=== PATIENT | female | born 1975 | race African-American/Black ===

== ENCOUNTER 2019-07-07 08:52 | Outpatient (CLI) | payer OTHER, SELFPAY ==
--- NOTE | ~2019-07-07 | US_ITS ---
EXAMINATION: US pelvic complete w TV DATE: 07/07/2019 09:43 INDICATION: Irregular menstruation Comparison:Ultrasound dated 09/14/2017 TECHNIQUE: Multiple transabdominal and endovaginal sonographic images of the pelvis performed. FINDINGS: The uterus measures 6.9 x 5.2 x 5.1 cm. Uterus is retroverted. There is a uterine fibroid a t the fundus measuring 3.1 x 3 x 2.8 cm. The endometrial complex measures 9 mm. The right ovary measures 0.4 x 1.6 x 1.4 cm and the left ovary measures 2.5 x 1.5 x 1.6 cm. There ar e small follicles in each ovary. There is no free fluid in the pelvis. There are no abnormal masses seen on either side. IMPRESSION: 1. 3.1 cm uterine fibroid. Reviewed, dictated and finalized at location A. L ASSEMBLY INSPECTOR IMPRESSION: 1. 3.1 cm uterine fibroid.
--- NOTE | ~2019-07-07 | US_ITS ---
US thyroid INDICATION: Thyroid nodule TECHNIQUE: Real-time sonographic images of the thyroid gland were obtained. COMPARISON: Ultrasound dated 10/31/2018 FINDINGS: The right thyroid lobe measures 4.2 x 1.7 x 1.9 cm. The left thyroid lobe measures 5.2 x 1 .6 x 1.9 cm. Nodule identified on prior examination is not appreciated on the current study. There is normal echotexture and echogenicity throughout the thyroid gland. No discrete nodules identified. N ormal vascular flow is present. IMPRESSION: 1. Normal thyroid without discrete nodule or abnormal vascularity. Reviewed, dictated and finalized at location A. GEMENT PSYCHOLOGIST
== END 2019-07-07 08:53 | disposition home or self-care (01) ==
PROVIDERS: PCP Internal Medicine; Visit Provider Obstetrics & Gynecology
DX: N92.6 Irregular menstruation, unspecified (principal); D25.9 Leiomyoma of uterus, unspecified; E04.1 Nontoxic single thyroid nodule
CPT/HCPCS: 76536; 76830; 76856

== ENCOUNTER 2019-07-11 17:40 | Emergency (ER) | payer OTHER, SELFPAY ==
[2019-07-11 17:48] VITALS: BP 131/68; PULSE 53; RESP 18; TEMP 36.3; O2SAT 100
== END 2019-07-11 18:37 | disposition left against medical advice (07) ==
LOC: EXPCOLL 17:45
PROVIDERS: Emergency Provider Nurse Practitioner; PCP Internal Medicine
DX: M79.675 Pain in left toe(s) (principal)
CPT/HCPCS: 99199

== ENCOUNTER → 2020-04-08 09:31 | Outpatient (CLI) | payer OTHER, SELFPAY ==
--- NOTE | ~2020-04-08 | CT_ITS ---
EXAMINATION: CT brain wo con EXAM DATE: 04/08/2020 10:07 INDICATION: Syncope and collapse. Dizziness. TECHNIQUE: Spiral CT of the head was performed without contrast. Axial, coronal and sagittal images were reviewed. The dose-length product (DLP) for this examination was 599.57 mGy-cm. The exposure w as tailored according to patient size, and iterative reconstruction (ASIR) was used as additional dos e reduction technique. There is no prior study for comparison. FINDINGS: There is no acute intraparenchymal hemorrhage. No evidence of intraparenchymal brain mass lesion. No evidence of acute infarction. There is no mass effect or midline shift. The ventricles are normal in size. There are no extra-axial collections. There are no acute calvarial fractures. T he orbits are unremarkable. Soft tissue is unremarkable. The visualized sinuses and mastoid air norris ls are well aerated. IMPRESSION: 1. Unremarkable head CT examination. Reviewed, dictated and finalized at location B. CTOR APPAREL
== END ==
PROVIDERS: PCP Internal Medicine; Visit Provider Internal Medicine
DX: R55 Syncope and collapse (principal)
CPT/HCPCS: 70450

== ENCOUNTER 2022-05-08 13:49 | Emergency (ER) | payer OTHER, SELFPAY ==
--- NOTE | ~2022-05-08 | XR_ITS ---
EXAMINATION: XR chest 2V DATE: 05/08/2022 14:19 INDICATION: Chest pain TECHNIQUE: PA and lateral views of the chest were obtained. COMPARISON: Chest radiograph dated 05/27/2019 FINDINGS: The lungs remain clear with no focal airspace opacities, pulmonary edema, pleural effusion or pneumot horax. The cardiomediastinal silhouette is normal. Upper thoracic levocurvature. IMPRESSION: 1. No acute cardiopulmonary disease. Reviewed, dictated and finalized at location A. ER ENGINEER HELPER
[2022-05-08 14:03] VITALS: BP 134/84; PULSE 64; RESP 18; TEMP 36.2; O2SAT 100
--- NOTE | 2022-05-08 14:06 | ECG_ITS ---
Measurements Intervals [place] Rate: 58 P: 56 VT: 141 QRS: 35 QRSD: 82 T: 51 QT: 422 QTc: 417 Interpretive Statements SINUS BRADYCARDIA POSSIBLE LEFT ATRIAL ENLARGEMENT BORDERLINE ECG NO PREVIOUS ECG AVAILABLE FOR COMPARISON Electronically Signed On 05-08-2022 15:57:44 GEOSPATIAL SYSTEMS INTEGRATOR by Kendell Sanchez M.D.
[2022-05-08 14:16] LABS: Basophils Absolute Auto 0.1 K/mm3 (0.0-0.1); Eosinophils Absolute Auto 0.2 K/mm3 (0-0.3); Hematocrit 42.2 % (37.0-47.0); Hemoglobin 13.9 g/dL (12.0-15.0); Immature Granulocyte Absolute 0.01 K/mm3 (0.00-0.031); Immature Granulocyte Percent A 0.2 % (0-0.5); Lymphocytes Absolute Auto 3.13 K/mm3 (0.9-3.2); Lymphocytes Percent Auto 51.9 % (18.3-44.2); Mean Corpuscular HGB Conc 32.9 g/dl (32-36); Mean Corpuscular Hemoglobin 31.3 pg (26-34); Mean Platelet Volume 9.8 fl (7.4-10.4); Monocytes Absolute Auto 0.5 K/mm3 (0.1-0.6); Neutrophils Absolute Auto 2.1 K/mm3 (1.3-6.7); Neutrophils Percent Auto 34.9 % (45.5-73.1); Platelet Count Result 269 k/mm3 (150-375); Red Blood Count 4.44 M/mm3 (4.2-5.4); Red Cell Distribution Width 13.6 % (11.5-14.5)
[2022-05-08 14:42] LABS: Alanine Aminotransferase 17 U/L (6-35); Albumin Level 4.5 g/dL (3.5-5.1); Alkaline Phosphatase 121 U/L (38-126); Anion Gap 4 mmol/L (8-16); Aspartate Amino Transferase 36 U/L (14-36); Bilirubin,Total 0.5 mg/dL (0.2-1.3); Blood Urea Nitrogen 12 mg/dL (7-17); Carbon Dioxide 30 mmol/L (22-30); Chloride 103 mmol/L (98-107); Estimated CRCL calculation 80 ml/min; Estimated Glomerular Filt Rate > 60; Glucose 98 mg/dL (65-110); Lipase 118 U/L (23-300); Potassium 4.1 mmol/L (3.4-5.0); Sodium 137 mmol/L (137-145)
[2022-05-08 14:42] LABS: Add Urine Microscopic? YES; Appearance Urine Clear (Clear); Bilirubin Urine 1+ (Negative); Blood Urine 1+ (Negative); Color Urine Yellow (Yellow); Glucose Urine UA Negative (Negative); Ketones Urine Negative (Negative); Leukocyte Esterase Ur Negative LEU/UL (Negative); Nitrate Urine Negative (Negative); Protein Urine Negative (Negative); Specific Grav Ur >= 1.030 (1.001-1.035); Urobilinogen Urine 0.2 mg/dL (<2.0); pH Urine 5.5 (5.0-9.0)
[2022-05-08 14:50] LABS: Bacteria Urine Trace /hpf; Mucus Urine Few /lpf; Squamous Epithelial Cell Urine Few /hpf (Few); WBC Urine 0-3 /hpf
[2022-05-08 14:53] LABS: Troponin I < 0.012 ng/mL (0.000-0.034)
--- NOTE | 2022-05-08 15:46 | PC.NURSE ---
Patient's name called multiple times to be taken to ED room, no answer.
--- NOTE | 2022-05-08 16:52 | PC.NURSE ---
Patient's name called again to be taken to room, no answer.
== END 2022-05-08 16:52 | disposition left against medical advice (07) ==
PROVIDERS: Emergency Provider Emergency Medicine; PCP Internal Medicine
DX: R07.9 Chest pain, unspecified (principal)
CPT/HCPCS: 36415; 71046; 80053; 81001; 81025; 83690; 84484; 85025; 93005; 99199

== ENCOUNTER 2022-07-02 12:15 | Emergency (ER) | payer OTHER, SELFPAY ==
[2022-07-02 12:29] VITALS: BP 136/74; PULSE 66; RESP 16; TEMP 36.4; O2SAT 97
== END 2022-07-02 13:15 | disposition left against medical advice (07) ==
PROVIDERS: PCP Internal Medicine
DX: Z53.21 Procedure and treatment not carried out due to patient leaving prior to being seen by health care provider (principal)
CPT/HCPCS: 99199

== ENCOUNTER 2024-04-19 18:25 | Emergency (ER) | payer OTHER, SELFPAY ==
[2024-04-19 18:36] VITALS: BP 116/66; PULSE 69; RESP 20; TEMP 37.6; O2SAT 100
== END 2024-04-19 19:05 | disposition left against medical advice (07) ==
PROVIDERS: Emergency Provider Internal Medicine Hematology & Oncology; PCP Internal Medicine
DX: Z53.21 Procedure and treatment not carried out due to patient leaving prior to being seen by health care provider (principal)
CPT/HCPCS: 99199

== ENCOUNTER 2024-04-21 10:13 | Emergency (ER) | payer OTHER, SELFPAY ==
--- NOTE | ~2024-04-21 | XR_ITS ---
EXAMINATION: XR chest 2V DATE: 04/21/2024 10:22 INDICATION: Chest pain. TECHNIQUE: Frontal and lateral views of the chest were obtained. COMPARISON: Chest 2 views 05/08/2022 FINDINGS: There is no pneumonia, pleural effusion, or pneumothorax. The heart size is normal. IMPRESSION: 1. No acute cardiopulmonary disease. Reviewed, dictated and finalized at location A. N PROCESSOR
--- NOTE | 2024-04-21 10:14 | ECG_ITS ---
Test Date: 2024-04-21 10:33:18 Measurements Intervals [place] Rate: 59 P: 69 AL: 124 QRS: 63 QRSD: 92 T: 59 QT: 393 QTc: 392 Interpretive Statements SINUS BRADYCARDIA MINIMAL VOLTAGE CRITERIA FOR LVH, CONSIDER NORMAL VARIANT [MEETS CRITERIA IN ONE OF: R(aVL), S(V1), R(V5), R(V5/V6)+S(V1)] No previous ECG available for comparison Electronically Signed On 04-21-2024 15:04:23 GROUND HOST/HOSTESS by Yang Biggs M.D.
[2024-04-21 10:23] VITALS: BP 113/71; PULSE 61; RESP 18; TEMP 36.2; O2SAT 98
[2024-04-21 10:46] LABS: Basophils Absolute Auto 0.1 K/mm3 (0.0-0.1); Basophils Percent Auto 1.1 % (0.2-1.2); Eosinophils Percent Auto 0.2 % (0-4.4); Hematocrit 42.8 % (37.0-47.0); Immature Granulocyte Absolute 0.01 K/mm3 (0.00-0.031); Immature Granulocyte Percent A 0.2 % (0-0.5); Lymphocytes Absolute Auto 2.01 K/mm3 (0.9-3.2); Lymphocytes Percent Auto 44.9 % (18.3-44.2); Mean Corpuscular Hemoglobin 32.3 pg (26-34); Mean Corpuscular Volume 92.2 fl (80-100); Mean Platelet Volume 10.5 fl (7.4-10.4); Monocytes Absolute Auto 0.6 K/mm3 (0.1-0.6); Monocytes Percent Auto 12.9 % (2.6-8.5); Neutrophils Absolute Auto 1.8 K/mm3 (1.3-6.7); Neutrophils Percent Auto 40.7 % (45.5-73.1); Platelet Count Result 165 k/mm3 (150-375); Red Blood Count 4.64 M/mm3 (4.2-5.4); Red Cell Distribution Width 13.9 % (11.5-14.5); White Blood Count 4.5 K/mm3 (4.5-10.0)
[2024-04-21 10:58] LABS: Alanine Aminotransferase 35 U/L (6-35); Albumin Level 4.4 g/dL (3.5-5.1); Alkaline Phosphatase 104 U/L (38-126); Anion Gap 7 mmol/L (4-12); Aspartate Amino Transferase 50 U/L (14-36); Bilirubin,Total 0.5 mg/dL (0.2-1.3); Blood Urea Nitrogen 13 mg/dL (7-17); Calcium 9.1 mg/dL (8.4-10.2); Carbon Dioxide 28 mmol/L (22-30); Chloride 103 mmol/L (98-107); Estimated CRCL calculation 67 ml/min; Estimated Glomerular Filt Rate > 60; Glucose 128 mg/dL (65-110); Lipase 127 U/L (23-300); Prothrombin Time 13.4 Seconds (11.1-14.7); Sodium 138 mmol/L (137-145)
[2024-04-21 11:09] LABS: Troponin I < 0.012 ng/mL (0.000-0.034)
[2024-04-21 12:02] VITALS: PULSE 447; PULSE 48; RESP 17; TEMP 36.7; O2SAT 97; O2SAT 98
--- NOTE | 2024-04-21 13:10 | ED.CHESTPAIN ---
HPI - Chest Pain General Chief Complaint: Chest Pain Stated Complaint: headache/CP/body aches Time Seen by Provider: 04/21/24 12:16 History of Present Illness HPI narrative: 49-year-old female with no pertinent past medical history presenting to the emergency depart with chief complaint of generalized malaise, decreased appetite, chest pain, coughing with mucus production, subjective fever and chills. She does have close contacts that are sick including a with pneumonia at home. Has been taking some Tylenol with minimal relief of her symptoms. Denies any shortness a breath, headache, vision change, dysuria, hematuria, back pain. She endorses pain with coughing and chest pressure / pain underneath her left breast cage. Denies any rashes. Denies any trauma recent injuries. Was otherwise in her normal state of health. Related Data Home Medications Medication Instructions Recorded Confirmed epinephrine 0.3 mg/0.3 mL 0.3 mg IM ONCE 04/22/19 07/02/22 injection, auto-injector (EpiPen 2-Luis Daniel) Allergies Allergy/AdvReac Type Severity Reaction Status Date / Time shrimp Allergy Severe swelling/hi Verified 07/02/22 12:25 ves/itching iodine Allergy Mild Unknown Verified 07/02/22 12:25 shellfish derived Allergy Unknown Itching Verified 07/02/22 12:25 Review of Systems Review of Systems: As reviewed above in HPI PMFSH Past Medical History Medical History Fibroid uterus Vaginal delivery x 2 Surgical History Surgical History History of tubal ligation Family History Family History Grandparent Family history of malignant neoplasm Family history of malignant neoplasm of breast Mother Family history of lung cancer Other Family history of heart disease in male family member before age 55 Hypertension Social History Social History Smoking status: Current some day smoker (smokes cigars 4 to 5 a day) Smoking end date: 05/15/13 Alcohol intake: current Exam Narrative: GENERAL: [Well-appearing, well-nourished, and in no acute distress.] HEAD: [Normocephalic, atraumatic.] EYES: [PERRLA and EOMI.] ENT: Nares clear, no rhinorrhea or epistaxis. Mucous membranes moist. NECK: Supple. CHEST: [Clear to auscultation. No respiratory distress.] HEART: [Regular rate and rhythm]. No murmur heard. [Normal peripheral pulses.] ABDOMEN: [Soft, nondistended], [nontender], [No rigidity or guarding] EXTREMITIES: Normal range of motion. [No edema.] SKIN: Warm, dry, no rash. NEURO: [No focal deficits]. Alert and oriented [x3.] PSYCH: [Normal mood and affect.] Course Vital Signs Vital signs: Vital Signs Temperature 36.2 C L 04/21/24 10:23 Pulse Rate 61 04/21/24 10:23 Respiratory Rate 18 04/21/24 10:23 Blood Pressure 113/71 04/21/24 10:23 Pulse Oximetry 98 04/21/24 10:23 Oxygen Delivery Room Air 04/21/24 10:23 Temperature 37.2 C 04/21/24 15:13 Pulse Rate 46 L 04/21/24 15:13 Respiratory Rate 17 04/21/24 15:13 Blood Pressure 126/64 04/21/24 15:13 Pulse Oximetry 98 04/21/24 15:13 Oxygen Delivery Room Air 04/21/24 12:02 MDM - Chest Pain MDM Narrative Medical decision making narrative: 49-year-old female with no pertinent past medical history who presents to the emergency room with chief complaint of myalgias, fatigue, decreased appetite, chest pain, pain with coughing and productive cough. She has close contacts including her sick with pneumonia at home. Denies any recent injuries or illnesses otherwise. Has been taking Tylenol without any relief of her symptoms. She has normal reassuring vital signs with any hypoxic, fever, tachycardia blood pressure concerns. Examination is reassuring with clear breath sounds bilaterally, no increased work of breathing, tachypnea, no tenderness to the palpation of the chest wall or back, no lesions or rashes. Overall she is well appearing and likely has a acute viral illness or acute viral syndrome secondary to a nonspecific virus but given her proximity to her with bacterial pneumonia could be secondary to this as well. Low suspicion cardiac pathology given her lack of risk factors and overall well appearance but a cardiac workup was ordered including a CBC, CMP, lipase, troponin, EKG, chest x-ray, urinalysis, COVID fluid RSV swabs. She is given Toradol for symptom control. Workup revealed no leukocytosis, anemia. Negative troponin. EKG without pneumonia, pneumothorax or acute infectious or cardiopulmonary concerns. Urinalysis without any active infection. COVID fluid influenza swab did come back for influenza a which I did inform the patient about. Given her timeline of symptoms going on for over 2 days and lack of any significant concerns on her laboratory assessment or workup today with overall well appearance without any comorbidities we did elect to not start Tamiflu after discussing this with the patient. Patient felt improved after Toradol and IV gave her expectant management precautions including [id number] therapies including Tylenol, ibuprofen and cold and flu medications at her local pharmacy. Patient's questions were answered she was stable for discharge at this time. Medical Records Data Attestation: I reviewed the patient's medical records. Lab Data Attestation: I reviewed the patient's lab results. 04/21/24 10:29 04/21/24 10:29 Labs: Lab Results 04/21/24 04/21/24 04/21/24 Range/Units 10:29 12:50 14:57 WBC 4.5 (4.5-10.0) K/mm3 RBC 4.64 (4.2-5.4) M/mm3 Hgb 15.0 (12.0-15.0) g/dL Hct 42.8 (37.0-47.0) % MCV 92.2 (80-100) fl MCH 32.3 (26-34) pg MCHC 35.0 (32-36) g/dl RDW 13.9 (11.5-14.5) % Plt Count 165 (150-375) k/mm3 MPV 10.5 H (7.4-10.4) fl Immature Gran % (Auto) 0.2 (0-0.5) % Neut % (Auto) 40.7 L (45.5-73.1) % Lymph % (Auto) 44.9 H (18.3-44.2) % [place] % (Auto) 12.9 H (2.6-8.5) % Eos % (Auto) 0.2 (0-4.4) % Baso % (Auto) 1.1 (0.2-1.2) % Lymph # (Auto) 2.01 (0.9-3.2) K/mm3 [place] # (Auto) 0.6 (0.1-0.6) K/mm3 Eos # (Auto) 0.0 (0-0.3) K/mm3 Baso # (Auto) 0.1 (0.0-0.1) K/mm3 Abs Immat Gran (auto) 0.01 (0.00-0.031) K/mm3 Absolute Neuts (auto) 1.8 (1.3-6.7) K/mm3 Absolute Nucleated RBC 0.000 (0.0-0.012) K/mm3 Nucleated RBC % 0.0 (0.0-0.2) % PT 13.4 (11.1-14.7) Seconds INR 1.0 APTT 34.0 (22.3-36.8) Seconds Sodium 138 (137-145) mmol/L Potassium 4.0 (3.4-5.0) mmol/L Chloride 103 (98-107) mmol/L Carbon Dioxide 28 (22-30) mmol/L Anion Gap 7 (4-12) mmol/L BUN 13 (7-17) mg/dL Creatinine 0.90 (0.7-1.0) mg/dL Estim Creat Clear Calc 67 ml/min Estimated GFR > 60 (59 - ) Glucose 128 H (65-110) mg/dL Calcium 9.1 (8.4-10.2) mg/dL Total Bilirubin 0.5 (0.2-1.3) mg/dL AST 50 H (14-36) U/L ALT 35 (6-35) U/L Alkaline Phosphatase 104 (38-126) U/L Troponin I < 0.012 (0.000-0.034) ng/mL Total Protein 8.0 (6.3-8.2) g/dL Albumin 4.4 (3.5-5.1) g/dL Lipase 127 (23-300) U/L Urine Color Dark yellow (Yellow) Urine Appearance Clear (Clear) Urine pH 5.0 (5.0-9.0) Ur Specific [place] 1.038 H (1.001-1.035) Urine Protein 2+ H (Negative) mg/dL Urine Glucose (UA) Negative (Negative) mg/dL Urine Ketones Trace H (Negative) mg/dL Ur Blood (Man) Negative (Negative) Urine Nitrate Negative (Negative) Urine Bilirubin Negative (Negative) Urine Urobilinogen 0.2 (<2.0) mg/dL Leukocyte Esterase Rfl Trace H (Negative) JAZZY/UL Urine RBC 0-2 (0-2) /hpf Urine WBC 0-5 (0-3) /hpf Ur Squamous Epith Cells Occasional (Few) /hpf Urine Bacteria Rare /hpf Urine Casts 3-5 Influenza A (RT-PCR) Positive A (Negative) Influenza B (RT-PCR) Negative (Negative) SARS-CoV-2 RNA (RT-PCR) Negative (Negative) 04/21/24 Range/Units 15:05 WBC (4.5-10.0) K/mm3 RBC (4.2-5.4) M/mm3 Hgb (12.0-15.0) g/dL Hct (37.0-47.0) % MCV (80-100) fl MCH (26-34) pg MCHC (32-36) g/dl RDW (11.5-14.5) % Plt Count (150-375) k/mm3 MPV (7.4-10.4) fl Immature Gran % (Auto) (0-0.5) % Neut % (Auto) (45.5-73.1) % Lymph % (Auto) (18.3-44.2) % [place] % (Auto) (2.6-8.5) % Eos % (Auto) (0-4.4) % Baso % (Auto) (0.2-1.2) % Lymph # (Auto) (0.9-3.2) K/mm3 [place] # (Auto) (0.1-0.6) K/mm3 Eos # (Auto) (0-0.3) K/mm3 Baso # (Auto) (0.0-0.1) K/mm3 Abs Immat Gran (auto) (0.00-0.031) K/mm3 Absolute Neuts (auto) (1.3-6.7) K/mm3 Absolute Nucleated RBC (0.0-0.012) K/mm3 Nucleated RBC % (0.0-0.2) % PT (11.1-14.7) Seconds INR APTT (22.3-36.8) Seconds Sodium (137-145) mmol/L Potassium (3.4-5.0) mmol/L Chloride (98-107) mmol/L Carbon Dioxide (22-30) mmol/L Anion Gap (4-12) mmol/L BUN (7-17) mg/dL Creatinine (0.7-1.0) mg/dL Estim Creat Clear Calc ml/min Estimated GFR (59 - ) Glucose (65-110) mg/dL Calcium (8.4-10.2) mg/dL Total Bilirubin (0.2-1.3) mg/dL AST (14-36) U/L ALT (6-35) U/L Alkaline Phosphatase (38-126) U/L Troponin I Pending (0.000-0.034) ng/mL Total Protein (6.3-8.2) g/dL Albumin (3.5-5.1) g/dL Lipase (23-300) U/L Urine Color (Yellow) Urine Appearance (Clear) Urine pH (5.0-9.0) Ur Specific [place] (1.001-1.035) Urine Protein (Negative) mg/dL Urine Glucose (UA) (Negative) mg/dL Urine Ketones (Negative) mg/dL Ur Blood (Man) (Negative) Urine Nitrate (Negative) Urine Bilirubin (Negative) Urine Urobilinogen (<2.0) mg/dL Leukocyte Esterase Rfl (Negative) JAZZY/UL Urine RBC (0-2) /hpf Urine WBC (0-3) /hpf Ur Squamous Epith Cells (Few) /hpf Urine Bacteria /hpf Urine Casts Influenza A (RT-PCR) (Negative) Influenza B (RT-PCR) (Negative) SARS-CoV-2 RNA (RT-PCR) (Negative) Imaging Data Attestation: I personally reviewed and interpreted this imaging study as follows: My impression: Impressions Chest X-Ray 04/21/24 10:31 IMPRESSION: 1. No acute cardiopulmonary disease. ECG Data EKG #1: Attestation: I personally reviewed and interpreted this ECG as follows: ECG completion date: 04/21/24 ECG completion time: 15:10 Prior ECG tracings: not available for review Interpretation: Sinus bradycardia, no S T segment elevations, depressions or inversions. No CO prolongation, QTC 395 and normal 5 QRS 88, CO interval 139. No previous EKG for comparison. overall sinus bradycardia without acute ischemic concerns or ectopy Discharge Plan Discharge Clinical Impression: Influenza A, Acute viral syndrome Patient Disposition: Home, Self-Care Condition: Stable Instructions: Antibiotic Form, Influenza (DC) Additional Instructions: take Tylenol, Motrin, [id number] cold and flu medications for your symptoms. Return at any time with any new or worsening concerns, difficulty breathing, chest pain or any other symptoms that you find worrisome. Follow-up with your regular doctor outpatient. Prescriptions: No Action epinephrine [EpiPen 2-Luis Daniel] 0.3 mg/0.3 mL auto-injector 0.3 mg IM ONCE Follow-up/Referrals: Pawan,MD Marcie [Primary Care Provider] - Time of Disposition: 15:29
[2024-04-21] MEDS: KETOROLAC 30 MG/ML VIAL (*BKC) IV PUSH (13:17)
[2024-04-21 14:00] VITALS: BP 110/64; PULSE 48; RESP 15; TEMP 36.4; O2SAT 100
[2024-04-21 14:20] LABS: Influenza A QL RT-PCR Positive (Negative); Influenza B QL RT-PCR Negative (Negative); SARS-CoV-2 RNA PCR Negative (Negative)
[2024-04-21 15:06] LABS: Add Urine Microscopic? YES; Appearance Urine Clear (Clear); Bacteria Urine Rare /hpf; Bilirubin Urine Negative (Negative); Blood Urine Negative (Negative); Color Urine Dark Yellow (Yellow); Glucose Urine UA Negative (Negative); Ketones Urine Trace mg/dL (Negative); Leukocyte Esterase Ur Trace LEU/UL (Negative); Nitrate Urine Negative (Negative); Protein Urine 2+ mg/dL (Negative); RBC Urine 0-2 /hpf (0-2); Specific Grav Ur 1.038 (1.001-1.035); Squamous Epithelial Cell Urine Occasional /hpf (Few); Urobilinogen Urine 0.2 mg/dL (<2.0); WBC Urine 0-5 /hpf (0-3)
--- NOTE | 2024-04-21 15:07 | ECG_ITS ---
Test Date: 2024-04-21 15:10:45 Measurements Intervals [place] Rate: 46 P: 10 [place]: 139 QRS: 48 QRSD: 88 T: 51 QT: 450 QTc: 395 Interpretive Statements SINUS BRADYCARDIA MINIMAL VOLTAGE CRITERIA FOR LVH, CONSIDER NORMAL VARIANT [MEETS CRITERIA IN ONE OF: R(aVL), S(V1), R(V5), R(V5/V6)+S(V1)] Compared to ECG 04/21/2024 10:33:18 No significant changes Electronically Signed On 04-22-2024 12:42:36 METAL STAMPER by Lasha Tipton M.D.
[2024-04-21 15:13] VITALS: BP 126/64; PULSE 46; RESP 17; TEMP 37.2; O2SAT 98
[2024-04-21 15:31] LABS: Troponin I < 0.012 ng/mL (0.000-0.034)
[2024-04-21 16:15] VITALS: BP 109/87; PULSE 100; RESP 20; TEMP 37.2; O2SAT 100
== END 2024-04-21 16:15 | disposition home or self-care (01) ==
PROVIDERS: Emergency Provider Student in an Organized Health Care Education/Training Program; PCP Internal Medicine
DX: J10.1 Influenza due to other identified influenza virus with other respiratory manifestations (principal); B34.9 Viral infection, unspecified; R00.1 Bradycardia, unspecified; Z20.822 Contact with and (suspected) exposure to COVID-19
CPT/HCPCS: 36415; 71046; 80053; 81001; 83690; 84484; 85025; 85610; 85730; 87636; 93005; 96374; 99284; J1885

== ENCOUNTER 2024-12-06 22:06 | Emergency (ER) | payer SELFPAY ==
--- OUTSIDE RECORDS SUMMARY | 2024-12-06 22:08 | XMS_ITS | Encounter Summary ---
Author Organization [facility] Healthcare Address [address] [place] [address] Care Team Providers Care Dray Truck Driver Name Role Phone Unavailable Primary Care Provider Unavailabl e Reason for Visit * Diagnostic Imaging (Routine) - Closed Specialty Diagnoses / Procedures Referred By Contac t Referred To Contact Procedures Breast Imaging Screening Outside Reference Referral, Self Referral ID Status Reason Start Date Expiration Date Visits Re quested Visits Authorized [id number] Closed 02/02/2022 03/04/2023 1 1 Encounter Details Date Type Department Care Team (Late st Contact Info) Description 09/14/2017 Hospital Encounter [facility] [address] [place] [id number] Social History Tobacco Use Types Packs/Day Years Used Date Smoking Tobacco: Every Day Cigarettes 0.2 1 Cigars Smokeless Tobacco: Never Comments:4 cigars daily Alcohol Use Standard Drinks/Week Comments Yes 0 (1 standard drink = 0.6 oz pur e alcohol) Socially AUDIT-C Answer Date Recorded Q1: How often do you have a drink containing alc ohol? Monthly or less 12/24/2020 Q2: How many drinks containi ng alcohol do you have on a typical day when you are drinking? 1 or 2 12/24/2020 Q3: How often do you have si x or more drinks on one occasion? 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 Gender Identity Not on file Sexual Orientation Not on file documented as of this encounter Functional Status documented as of this encounter Plan of Treatment Not on file documented as of this encounter Procedures Procedure Name Priority Date/Time Associated Diagnosis Comments BREAST IMAGING MG SCREENING OUTSIDE REFERENCE Routine 09/14/2017 12:00 AM CDT documented in this encounter Results * Breast Imaging Screening Outside Reference (09/14/2017 12:00 AM CDT) Impressions [facility] - 02/02/2022 3:38 PM CDT These images are for Reference purposes only and have not been reviewed by [facility]. There will be no report generated by a [facility] Radiologist. Narrative [facility]_MAMMO[facility] - 02/02/2022 3:38 PM CDT EXAMINATION: Images For Reference Purposes Only us Self Referral IMG MAMMO PROCEDURES Final Resul t [facility] documented in this encounter Visit Diagnoses Not on filedocumented in this encounter
--- OUTSIDE RECORDS SUMMARY | 2024-12-06 22:08 | XMS_ITS | Data Portability ---
Author Organization JADEN MARINAMike Cuhrch Address [address] [facility] [place] [address] Assessment No assessment recorded. Plan of Treatment Reminders Order Date Submit Date Provider Last Modified By Organization Details Last Modified Time Details Appointments None recorded. Lab RPR (rapid plasma reagin), titer, serum 2015 016 [facility], [address] [place] [address], [address], [place], [address], 6 08:38:43 HIV (1+2) Ab, serum (donor) 2015 016 [email or web address] [facility], [address] [place] [address], [address], [place], [address], 6 10:49:31 hepatitis panel (A+B+C), acute, serum 2015 016 [facility], [address] [place], [place] [address]farooq Pancho, [address], [place], [address], 6 08:38:42 pap, IG + CT/NG + HPV + reflex HPV (16+18+45) 2015 016 [facility], [address] [place], [place] [address]farooq Deleon, [address], [place], [address], 6 15:26:56 culture, urine 2015 016 [facility] (Lab), [address] [place], [address], 6 23:10:46 Referral None recorded. Procedures None recorded. Surgeries None recorded. Imaging MAMMO, screening, digital, bilateral - Breast cancer screening 2015 016 ROMA[facility] Not available 6 15:27:49 Medication Orders nicotine 21 mg/24 hr daily transderma l patch 2015 016 [id number], [address] [place], [address], 6 16:35:44 nicotine 14 mg/24 hr daily transderma l patch 2015 016 [id number], [address] [place], [address], 6 16:35:45 nicotine 7 mg/24 hr daily transderma l patch 2015 016 [id number], [address] [place], [address], 6 16:35:47 Patient TargetsNo targets recorded. Patient Instructions Encounter Date Encounter Id Patient Instructions Last Modified By Organization Details Last Modified Time 12/08/2015 [id number] mammogram: about this test [email or web address] Not available 12/09/2015 09:48:52 get u/s result from [facility], pt encouraged to stop smoking Not available 12/08/2015 16:35:42 Reason for Referral None Reported. Results Created Date Observation Date Name Description Value Unit Range Abnormal Flag Note LastModifiedBy Organization Detail LastModifiedTime 12/08/19 16 12/09/2015 HIV (1+2) Ab scree n, serum HIV 4TH generation Non Reacti ve non reacti ve Not Available [facility] (Lab) [address], [place], [address], 12/09/2015 06:20:45 12/08/19 16 12/09/2015 hepat itis panel (A+B+ C), acute , serum hep A Ab, IgM Negati ve negati ve Not Available [facility] (Lab) [address] [place], [address], 12/09/2015 08:38:42 12/08/19 16 12/09/2015 hepat itis panel (A+B+ C), acute , serum HBsAg screen Negati ve negati ve Not Available [facility] (Lab) [address] [place], [address], 12/09/2015 08:38:42 12/08/19 16 12/09/2015 hepat itis panel (A+B+ C), acute , serum hep B core Ab, IgM Negati ve negati ve Not Available [facility] (Lab) [address] [place], [address], 12/09/2015 08:38:42 12/08/19 16 12/09/2015 hepat itis panel (A+B+ C), acute , serum hep C virus Ab <0.1 s/co_ ratio 0.0-0. 9 Negat mary: < 0.8 Indet ermin ate: 0.8 - 0.9 Posit mary: > 0.9 . The CDC recom mends that a posit mary HCV antib maris resul t be follo wed up with a HCV Nucle ic Acid Ampli ficat ion test (5507 13). Not Available [facility] (Lab) [address] [facility], [place], [address], 12/09/2015 08:38:42 12/08/19 16 12/09/2015 RPR (rapi d plasm a reagi n), serum RPR Non Reacti ve non reacti ve Not Available [facility] (Lab) [address] [place], [address], 12/09/2015 08:38:43 12/08/19 16 12/09/2015 cultu re, urine urine culture, routine Final report Not Available [facility] (Lab) [address] [place], [address], 12/09/2015 23:10:46 12/08/19 16 12/09/2015 cultu re, urine result 1 MUG Mixed uroge nital camila Less than 10,00 0 colon ies/m L Not Available [facility] (Lab) [address] [place], [address], 12/09/2015 23:10:46 12/08/19 16 12/12/2015 pap, IG + CT/NG + HPV + refle x HPV (16+1 8+45) papig HPV age gdln acog 30-65 Not Available [facility] ([facility]) [address] [place], [address], 12/12/2015 02:12:47 12/08/19 16 12/12/2015 pap, IG + CT/NG + HPV + refle x HPV (16+1 8+45) diagnosis: SPRCS NEGAT MARY FOR INTRA EPITH ELIAL LESIO N AND MALIG TYSON . Perfo rmed at: WB Not Available [facility] ([facility]) [address] [place], [address], 12/12/2015 02:12:47 12/08/19 16 12/12/2015 pap, IG + CT/NG + HPV + refle x HPV (16+1 8+45) specimen adequacy: [facility] Satis facto ry for evalu ation . Endoc ervic al and/o r squam ous metap lasti c cells (endo cervi teresa compo nent) are prese nt. Perfo rmed at: WB Not Available [facility] ([facility]) [address] [place], [address], 12/12/2015 02:12:47 12/08/19 16 12/12/2015 pap, IG + CT/NG + HPV + refle x HPV (16+1 8+45) clinician provided ICD10 [facility] Z01.4 19 Perfo rmed at: WB Not Available [facility] ([facility]) [address] [place], [address], 12/12/2015 02:12:47 12/08/19 16 12/12/2015 pap, IG + CT/NG + HPV + refle x HPV (16+1 8+45) performed by: [facility] (ASCP ) Perfo rmed at: WB Not Available [facility] ([facility]) [address] [place], [address], 12/12/2015 02:12:47 12/08/19 16 12/12/2015 pap, IG + CT/NG + HPV + refle x HPV (16+1 8+45) Pap smear, 1 slide . Perfo rmed at: WB Not Available [facility] ([facility]) [address] [place], [address], 12/12/2015 02:12:47 12/08/19 16 12/12/2015 pap, IG + CT/NG + HPV + refle x HPV (16+1 8+45) note: PAPSMR The Pap smear is a scree shilo test desig cydney to aid in the detec tion of ara ligna nt and malig nant condi tions of the uteri ne cervi x. It is not a diagn ostic proce dure and shoul d not be used as the sole means of detec ting cervi teresa cance r. Both false -posi tive and false -nega tive repor ts do occur . . Perfo rmed at: WB Not Available [facility] ([facility]) [address] [place], [address], 12/12/2015 02:12:47 12/08/19 16 12/12/2015 pap, IG + CT/NG + HPV + refle x HPV (16+1 8+45) test methodology: IGLPAP This liqui d based ThinP rep(R ) pap test was scree cydney with the use of an image guide rodolfo cortez Perfo rmed at: WB Not Available [facility] ([facility]) [address] [place], [address], 12/12/2015 02:12:47 12/08/19 16 12/12/2015 pap, IG + CT/NG + HPV + refle x HPV (16+1 8+45) HPV aptima Negati ve negati ve This test detec ts fourt een high- risk HPV types (16/1 8/31/ 33/35 /39/4 5/ 51/52 /56/5 8/59/ 66/68 ) witho ut diffe renti ation . Perfo rmed at: =G Not Available [facility] ([facility]) [address] [place], [address], 12/12/2015 02:12:47 12/08/19 16 12/12/2015 pap, IG + CT/NG + HPV + refle x HPV (16+1 8+45) chlamydia, nuc. acid Negati ve negati ve Perfo rmed at: =G Not Available [facility] ([facility]) [address] [place], [address], 12/12/2015 02:12:47 12/08/19 16 12/12/2015 pap, IG + CT/NG + HPV + refle x HPV (16+1 8+45) gonococcus, nuc. acid amp Negati ve negati ve Perfo rmed at: =G Not Available [facility] ([facility]) [address] [place], [address], 12/12/2015 02:12:47 12/08/19 16 12/12/2015 pap, IG + CT/NG /TV papig HPV age gdln acog 30-65 Not Available [facility] (Lab) [address] [place], [address], 12/12/2015 02:12:49 12/08/19 16 12/12/2015 pap, IG + CT/NG /TV diagnosis: SPRCS NEGAT MARY FOR INTRA EPITH ELIAL LESIO N AND MALIG TYSON . Perfo rmed at: WB Not Available [facility] (Lab) [address] [place], [address], 12/12/2015 02:12:49 12/08/19 16 12/12/2015 pap, IG + CT/NG /TV specimen adequacy: [facility] Satis facto ry for evalu ation . Endoc ervic al and/o r squam ous metap lasti c cells (endo cervi teresa compo nent) are prese nt. Perfo rmed at: WB Not Available [facility] (Lab) [address] [facility], [place], [address], 12/12/2015 02:12:49 12/08/19 16 12/12/2015 pap, IG + CT/NG /TV clinician provided ICD10 [facility] Z01.4 19 Perfo rmed at: WB Not Available [facility] ([facility]) [address] [facility], [place], [address], 12/12/2015 02:12:49 12/08/19 16 12/12/2015 pap, IG + CT/NG /TV performed by: [facility] Ralph Cleaning (ASCP ) Perfo rmed at: WB Not Available [facility] ([facility]) [address] [facility], [place], [address], 12/12/2015 02:12:49 12/08/19 16 12/12/2015 pap, IG + CT/NG /TV Pap smear, 1 slide . Perfo rmed at: WB Not Available [facility] ([facility]) [address] [facility], [place], [address], 12/12/2015 02:12:49 12/08/19 16 12/12/2015 pap, IG + CT/NG /TV note: PAPSMR The Pap smear is a scree shilo test desig cydney to aid in the detec tion of ara ligna nt and malig nant condi tions of the uteri ne cervi x. It is not a diagn ostic proce dure and shoul d not be used as the sole means of detec ting cervi teresa cance r. Both false -posi tive and false -nega tive repor ts do occur . . Perfo rmed at: WB Not Available [facility] (Lab) [address] [facility], [place], [address], 12/12/2015 02:12:49 12/08/19 16 12/12/2015 pap, IG + CT/NG /TV test methodology: IGLPAP This liqui d based ThinP rep(R ) pap test was anat lamas with the use of an image guide rodolfo collazo. Perfo rmed at: WB Not Available [facility] (Lab) [address] [facility], [place], [address], 12/12/2015 02:12:49 12/08/19 16 12/12/2015 pap, IG + CT/NG /TV HPV aptima Negati ve negati ve This test detec ts fourt een high- risk HPV types (16/1 8/31/ 33/35 /39/4 5/ 51/52 /56/5 8/59/ 66/68 ) witho ut diffe renti ation . Perfo rmed at: =G Not Available [facility] (Lab) [address] [facility], [place], [address], 12/12/2015 02:12:49 12/08/19 16 12/12/2015 pap, IG + CT/NG /TV chlamydia, nuc. acid Negati ve negati ve Perfo rmed at: =G Not Available [facility] (Lab) [address] [place], [address], 12/12/2015 02:12:49 12/08/19 16 12/12/2015 pap, IG + CT/NG /TV gonococcus, nuc. acid amp Negati ve negati ve Perfo rmed at: =G Not Available [facility] (Lab) [address] [place], [address], 12/12/2015 02:12:49 02/16/20 16 02/15/2016 MAMMO , scree shilo, bilat eral DIGITA L BILATE RAL SCREEN ING MAMMOG BANDAR SIX VIEWS INCLUD ING CAD: Chief compla int/in dicati on: Z12.31 . First degree relati ve with breast cancer . No curren t breast compla ints. COMPAR BRANDT: None. Baseli ne exam. TECHNI QUE: Cranio caudal and mediol ateral obliqu e views were obtain ed. CAD utiliz ed. FINDIN GS: Hetero geneou sly dense breast tissue bilate rally. No suspic ious microc alcifi cation , joel ectura l distor tion, or mass. No suspic ious findin gs. IMPRES TOYA: BENIGN APPEAR ING MAMMOG BANDAR. BI-RAD S 2-ELIJAH GN FINDIN GS. RECOMM ENDATI ON: ANNUAL MAMMOG BANDAR. READ BY: OBINNA BRO SIGNED BY: OBINNA BRO Date: 2015 14:20 [facility] (Rad) [address] [place], [address], 02/17/2016 10:11:31 02/22/20 16 02/15/2016 MAMMO , scree shilo, digit al, bilat eral No observ ation record ed. [facility] (Start Now) [address] [place], [address], 02/22/2016 13:41:45 Result Notes Documentation Provider Name and Address Organization Details Recorded Time Mammo, Screening, Bilateral : DIGITAL BILATERAL SCREENING MAMMOGRAM SIX VIEWS INCLUDING CAD: Chief complaint/indication: Z12.31. First degree relative with breast cancer. No current breast complaints. COMPARISON: None. Baseline exam. TECHNIQUE: Craniocaudal and mediolateral oblique views were obtained. CAD utilized. FINDINGS: Heterogeneously dense breast tissue bilaterally. No suspicious microcalcification, architectural distortion, or mass. No suspicious findings. IMPRESSION: BENIGN APPEARING MAMMOGRAM. BI-RADS 2-BENIGN FINDINGS. RECOMMENDATION: ANNUAL MAMMOGRAM. READ BY: OBINNA BRO SIGNED BY: OBINNA BRO Date: 02/16/2016 14:20 Norman Finn MD Attn: Accounting,[address] [place], [address], [facility] 02/17/2016 10:11:31 Problems Name Problem SNOMED Code Status Onset Date Resolution Date Notes Provider Name and Address Organization Details Recorded Time Smoker 46001025 Active Norman Finn MD Attn: Elidia bonilla,[address] [facility], [place], [address], [facility] 6 16:35:39 Sexually transmitted infectious disease 3444792 Active Norman Finn MD Attn: Elidia bonilla,[address] [facility], [place], [address], [facility] 6 16:35:39 Problem Notes None recorded. Procedures Surgical History Date Name Laterality Status Provider Name and Address Organization Details Recorded Time 7 Tubal Ligation completed Norman Finn MD Attn: Accounting, [place], [address], [facility] 12/08/2015 16:14:03 Imaging Results None recorded. Procedure Notes None recorded. Medical Equipment None Reported. Medications Name Sig Start Date Stop Date Status Note LastModified by Organization Details LastModified Time nicotine 14 mg/24 hr daily transdermal patch Apply 1 patch every day by transdermal route for 14 days. 2015 active Not Available Not Available Not Avai lable nicotine 21 mg/24 hr daily transdermal patch Apply 1 patch every day by transdermal route for 14 days. 2015 active Not Available Not Available Not Avai lable nicotine 7 mg/24 hr daily transdermal patch Apply 1 patch every day by transdermal route for 7 days. 2015 active Not Available Not Available Not Avai lable Vitals Date Recorded Body height Body weight Body mass index (BMI) Systolic And Diastolic Provider Name and Address Organization Details Last Updated DateTime 12/08/2015 172.72 cm 43365.717 376 g 31.1 kg/m2 110/60 mm[Hg] Melina Oscar [facility] 12/08/2015 16:04:51 Social History Question Answer Notes LastModified by Organizat ion Details LastModified Time Tobacco Smoking Status Current Every Day Smoker Norman Finn MD Attn: Accounting,[address] [place], [address], [facility] 12/08/2015 16:35:42 Which Illicit Or Recreational Drugs Have You Used? None Information not available 12/08/2015 How Much Tobacco Do You Smoke? 1.5 PPD Information not available 12/08/2015 How Many Years Have You Smoked Tobacco? 10 Information not available 12/08/2015 Sex: Unknown Functional Status Question Answer Note LastModified by Organizat ion Details LastModified Time What is your level of alcohol consumption? 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 Family History Relationship Description Onset Age of this Age Resolved Age Notes LastModified by Organization Details LastModified Time Mother Malignant neoplasm of lung 50 Not available 11/13 16:15:03 Father No current problems or disability Not available 16:15:03 Medical History Condition Response Other N High Blood Pressure N Breast Cancer N Thyroid Problems N Kidney or Bladder Problems N GI Problems N Depression N Blood Clots N Lung Disease N Acne N Breast Problem N Eating Disorder N Anemia N Anesthesia Complications N Headaches/Migraines N Anxiety Disorder N Diabetes N Ovarian Cancer N Muscle, Joint, or Bone Problems N Blood Transfusions N Seizures/Epilepsy N Polyps N Infertility N Acid Reflux (GERD) N Cancer N Abuse/Domestic Violence N Asthma N Endometriosis N High Cholesterol N Hepatitis N Liver Disease N Heart Disease N Pre-Eclampsia N Osteoporosis N Gynecological History Statement/Question Response Flow Moderate Sexually Active? Y Menses Monthly Y Date of Last Pap Smear Duration of Flow (days) 3 Sexual Problems? 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) [address] [facility] [place] [address] 12/08/2015 15:33:05 12/08/2015 17:11:34 Gynecologic examination 25638080 Z01.419 Smoker 54746602 F17.200 Sexually t ransmitted infectious disease 7094445 A64 Screening mammography 24 705409 Z12.31 Health Concerns Section Related Observation LastModified by Organization Detai ls LastModified Time None Recorded Concern Status LastModified by Organization Details LastModified Time None Recorded Advance Directives Directive None Recorded Payers Insurance Date Sequence Insurance Name Policy Number Policy Riojas Covered Member ID Riojas Member ID Guarantor Name 12/10/2015 2 [facility] Sona Jaramillo [id number] Kevyn Jaramillo 12/10/2015 1 [employer] (POS) [id number] Kevyn Pardo [id number] Kevyn Jaramillo Notes Date Note Type Note Provider Name and Address Organization Details Recorded Time 12/08/2015 text/html 40 yr. old aaf here for annual exam LMP 12/05/15 Had two periods in November. Had some lower right quadrant pain last week but none now. Seen in urgent care no diagnosis given. Had u/s at [facility] last yr. Dx. with fibroid uterus. No other problems. wants HIV test Norman Finn MD Attn: Accounting,[address] [place], [address], [facility] 12/08/2015 16:36:01 OBGyn Episode No OBEpisode recorded.
--- OUTSIDE RECORDS SUMMARY | 2024-12-06 22:08 | XMS_ITS | Encounter Summary ---
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 Operator Transplanter Name Role Phone Unavailable Primary Care Provider Unavailabl e Reason for Visit * Diagnostic Imaging (Routine) - Closed Specialty Diagnoses / Procedures Referred By Contac t Referred To Contact Procedures Breast Imaging Screening Outside Reference Referral, Self Referral ID Status Reason Start Date Expiration Date Visits Re quested Visits Authorized [id number] Closed 02/02/2022 03/04/2023 1 1 Encounter Details Date Type Department Care Team (Late st Contact Info) Description 10/31/2018 Hospital Encounter [facility] [address] [place] [id number] Social History Tobacco Use Types Packs/Day Years [...] on file 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 Gender Identity Not on file Sexual Orientation Not on file documented as of this encounter Functional Status documented as of this encounter Plan of Treatment Not on file documented as of this encounter Procedures Procedure Name Priority Date/Time Associated Diagnosis Comments BREAST IMAGING MG SCREENING OUTSIDE REFERENCE Routine 10/31/2018 12:00 AM CDT documented in this encounter Results * Breast Imaging Screening Outside Reference (10/31/2018 12:00 AM CDT) Impressions RAD_MAMMO_[facility] - 02/02/2022 3:38 PM CDT These images are for Reference purposes only and have not been reviewed by [facility] Radiology. There will be no report generated by a [facility] Radiologist. Narrative RAD_MAMMO_[facility] - 02/02/2022 3:38 PM CDT EXAMINATION: Images For Reference Purposes Only us Self Referral IMG MAMMO PROCEDURES Final Resul t [facility]MO[facility] documented in this encounter Visit Diagnoses Not on filedocumented in this encounter
--- OUTSIDE RECORDS SUMMARY | 2024-12-06 22:09 | XMS_ITS | Clinical Summary ---
Author Organization [facility] Address [address] [place] [id number] Care Team Providers Care Medical Records Auditor Name Role Phone Stiven Villalta MD Primary Care Provider [phone] Jenny Kraft DO Unavailable [phone] Family History Medical History Relation Comments Breast Cancer Paternal Grandmother Relation Status Comments Paternal Grandmother Social History Tobacco Use Types Packs/Day Years Used Date Smoking Tobacco: Never Assessed Comments Unknown Sex and Gender Information Value Date Recorded Sex Assigned at Not on file Legal Sex Female 1:12 PM CDT Gender Identity Not on file Sexual Orientation Not on file Plan of Treatment Health Maintenance Due Date Last Done Comments Cervical Cancer Screening Pa p Smear (Age 30 to 64) Every 3 Years 1975 Colorectal Cancer Screening Colonoscopy (10 Years) 1975 Annual Physical 1978 Hepatitis C 1993 DTaP, Tdap and Td Vaccines ( 1 - Tdap) 1994 Hepatitis B Vaccines (1 of 3 - 19+ 3-dose series) 1994 Cervical Cancer Screening Pa p with HPV Testing (Age 30 to 64) Every 5 Years 2005 Cervical Cancer Screening with HPV 2005 COVID-19 Vaccine (2023-2 5 season) 2024 Mammogram Screening 03/09/2025 03/09/2023 Meningococcal B Vaccine Aged Out No l onger eligible based on patient's age to complete this topic Meningococcal Vaccine Aged Out No nate bennie eligible based on patient's age to complete this topic Pneumococcal Vaccine: Pediat rics (0 to 5 Years) and At-Risk Patients (6 to 49 Years) Aged Out No longer eligi ble based on patient's age to complete this topic RSV Immunizations Under 20 Months Aged Out No longer eligible based on patient's age to complete this topic Procedures Procedure Name Priority Date/Time Associated Diagnosis Comments MG SCREENING W EUGENIA RAMON DIGI Routine 03/09/2023 12:03 PM CDT Visit for screening mammogram from Last 3 Months or Most Recently Relevant to Health Maintenance Results * MG SCREENING W EUGENIA RAMON DIGI (03/09/2023 12:03 PM CDT) Anatomical Region Laterality Modality Breast Bilateral Mammography 03/15/2023 7:33 AM CDT Narrative 03/15/2023 7:38 AM CDT Examination: Screening bilateral mammogram Exam Date: 03/09/2023 11:08 AM Clinical history: Routine screening. Comparison: 02/01/2022, 10/31/2018 Technique: Digital screening mammography of both breasts was performed. Breast tomosynthesis acquisitions were obtained and reviewed. This study was read with the assistance of a computer-aided detection system. Tissue density: There are scattered areas of fibroglandular density. Findings: No suspicious masses, malignant appearing calcifications, skin thickening or other abnormalities are present. No significant change from the prior exam. IMPRESSION: No suspicious mammographic findings. Recommendation: 1. Routine Screening, Bilateral Assessment: ACR BI-RADS 1 - NEGATIVE Ordered By: STIVEN VILLALTA Interpreted By: Garry Boothe MD, 03/15/2023 7:33 AM Stiven Villalta MD MAMMO Final Result from Last 3 Months or Most Recently Relevant to Health Maintenance Insurance [facility] Care Teams Medical Records Auditor Relationship Specialty Start Date End Date Stiven Villalta MD [address] [facility] [address] [place] [address] PCP - General INTERNAL MEDICINE 02/20/23 Jenny Karft DO [address] [facility] [address] [place] [address] 02/20/23
--- OUTSIDE RECORDS SUMMARY | 2024-12-06 22:09 | XMS_ITS | Data Portability ---
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 Studies ordered as below. Discussed plan with patient/caregiver , who expressed understanding. Follow up as noted below. Not available 03/09/2023 11:22:26 06/13/2023 06/13/2023 Patient presente d for follow up. Studies ordered as below. Discussed plan with patient/caregiver , who expressed understanding. Follow up as noted below. Not available 06/13/2023 10:34:03 09/12/2023 09/12/2023 Patient presente d for follow up. Studies ordered as below. Discussed plan with patient/caregiver , who expressed understanding. Follow up as noted below. Not available 09/12/2023 09:46:10 03/04/2024 03/04/2024 Patient presente d to office today for their Medicare Annual Wellness Visit. Education was provided on healthy nutrition, including a diet rich in fruits and vegetables, minimizing simple carbohydrates, salt, and saturated fats. Encouraged regular cardiovascular exercise such as walking at least 30 minutes daily, 5 times per week. Emphasized preventive health measures and educated pt on fall prevention and community-based lifestyle interventions to help reduce health risks and promote healthy living. Not available 03/04/2024 10:51:50 Plan of Treatment Reminders Order Date Submit Date Provider Last Modified By Organization Details Last Modified Time Details Appointments None recorded. Lab lipid panel w/ direct LDL, serum 2023 YVONNE [facility], [address], [place], [address], 4 04:05:42 TSH, serum or plasma 2023 YVONNE [facility], [address], [place], [address], 4 08:22:30 CMP, serum or plasma 2023 YVONNE [facility], [address], [place], [address], 4 08:22:27 CBC w/ auto diff 2023 YVONNE [facility], [address], [place], [address], 4 08:22:28 HbA1c (hemoglobi n A1c), blood 2023 YVONNE [facility], [address], [place], [address], 4 08:22:32 microalbum in/creatin ine, mass ratio, urine 2023 YVONNE [facility], [address], [place], [address], 4 08:22:26 C-peptide, serum 2023 YVONNE [facility], [address], [place], [address], 4 08:22:29 vitamin B12, serum 2023 YVONNE [facility], [address], [place], [address], 4 08:22:31 HbA1c (hemoglobi n A1c), blood 2023 YVONNE [facility], [address], [place], [address], 4 04:14:32 CMP, serum or plasma 2023 024 YVONNE [facility], [address], [place], [address], 4 04:14:33 microalbum in/creatin ine, mass ratio, urine 2023 024 YVONNE [facility], [address], [place], [address], 4 04:14:33 vitamin B12, serum 2023 024 YVONNE [facility], [address], [place], [address], 4 04:09:11 lipid panel w/ direct LDL, serum 2022 [facility], [address], [place], [address], 3 05:55:07 TSH, serum or plasma 2022 023 YVONNE [facility], [address], [place], [address], 4 14:07:57 HbA1c (hemoglobi n A1c), blood 2022 023 [facility], [address], [place], [address], 4 14:07:59 CMP, serum or plasma 2022 023 YVONNE [facility], [address], [place], [address], 4 14:07:55 vitamin B12, serum 2022 023 YVONNE [facility], [address], [place], [address], 4 14:07:58 CBC w/ auto diff 2022 023 YVONNE [facility], [address], [place], [address], 4 14:07:[address] referral 2024 025 [email or web address] Ziggy Crouch MD, [address] [place], [address], 5 18:33:47 chiropract or referral 2023 024 [facility] (Dr Henry And Dr Mulligan), [address] [place], [address], 4 14:12:[address] referral 2023 024 YVONNE Meraz MD, [address], [address], 4 04:09:28 diabetic ophthalmol ogy referral 2023 024 YVONNE [facility], [address], [place], [address], 4 04:09:28 diabetic ophthalmol ogy referral 2023 024 YVONNE [facility], [address], [place], [address], 4 04:06:41 diabetic ophthalmol ogy referral [facility]22 [facility], [address], [place], [address], 3 05:33:19 Procedures None recorded. Surgeries None recorded. Imaging MAMMO, screening, digital, bilateral 2023 024 [facility] (Imaging), [address], [place], [address], 5 16:01:50 electrocar diogram 2023 [facility], [address], [place], [address], 4 12:18:07 MAMMO, screening, digital, bilateral 2022 023 [facility], [address], [place], [address], 3 08:48:21 XR, knee, 3 view 2022 023 [facility], [address], [place], [address], 3 05:55:13 Medication Orders Senna Plus 8.6 mg-50 mg tablet 2023 [facility], [address] [place] [address], [address], 4 11:28:49 Chantix Starting Month Box 0.5 mg (11)-1 mg (42) tablets in dose pack 2023 [facility], [address] [place] [address], [address], 4 11:28:45 Ozempic 0.25 mg or 0.5 mg (2 mg/3 mL) subcutaneo us pen injector 2023 [facility], [address] [place] [address], [address], 4 11:28:44 Vitamin B-12 2,500 mcg sublingual tablet 2023 [facility], [address] [place] [address], [address], 4 11:28:45 Ozempic 1 mg/dose (4 mg/3 mL) subcutaneo us pen injector 2023 024 [facility], [address] [place] [address], [address], 4 11:20:06 EpiPen 2-Luis Daniel 0.3 mg/0.3 mL injection, auto-injec tor 2023 024 [facility], [address] [place] [address], [address], 4 10:26:41 Ozempic 1 mg/dose (4 mg/3 mL) subcutaneo us pen injector 2023 024 [facility] [facility], [address] [place] [address], [address], 4 11:19:58 Chantix Starting Month Box 0.5 mg (11)-1 mg (42) tablets in dose pack 2023 024 [facility], [address] [place] [address], [address], 4 10:58:26 Vitamin B-12 2,500 mcg sublingual tablet 2023 024 [facility], [address] [place] [address], [address], 4 10:58:26 Ozempic 0.25 mg or 0.5 mg (2 mg/3 mL) subcutaneo us pen injector 2022 023 [employer] [facility], [address] [place] [address], [address], 4 10:17:19 Vitamin B-12 2,500 mcg sublingual tablet 2022 023 YVONNE [facility], [address] [place] [address], [address], 11:46:14 Patient TargetsNo targets recorded. Patient Instructions Encounter Date Encounter Id Patient Instructions Last Modified By Organization Details Last Modified Time 03/09/2023 [id number] mammogram: about this test mshenouda Not available 03/09/2023 11:45:48 infection from tattoos: care instructions mshenouda Not available 03/09/2023 11:45:48 controlling your asthma: care instructions mshenouda Not available 03/09/2023 11:45:48 learning about asthma mshenouda Not available 03/09/2023 11:45:48 learning about healthy weight mshenouda Not available 03/09/2023 11:45:49 type 2 diabetes: care instructions mshenouda Not available 03/09/2023 11:45:48 06/13/2023 [id number] mammogram: about this test mshenouda Not available 06/13/2023 10:58:23 controlling your asthma: care instructions mshenouda Not available 06/13/2023 10:58:23 learning about asthma mshenouda Not available 06/13/2023 10:58:23 spirometry testing* YVONNE Not available 06/13/2023 11:29:10 type 2 diabetes: care instructions mshenouda Not available 06/13/2023 10:58:23 smoking cessatio n counseling, greater than 3 minutes up to 10 minutes* YVONNE Not available 06/20/2023 04:11:14 09/12/2023 [id number] mammogram: about this test mshenouda Not available 09/12/2023 10:26:38 controlling your asthma: care instructions mshenouda Not available 09/12/2023 10:26:39 learning about asthma mshenouda Not available 09/12/2023 10:26:39 learning about healthy weight mshenouda Not available 09/12/2023 10:26:38 smoking cessatio n counseling, greater than 3 minutes up to 10 minutes* YVONNE Not available 09/19/2023 04:14:32 03/04/2024 [id number] mammogram: about this test mshenouda Not available 03/04/2024 11:28:40 back care and preventing injuries: care instructions mshenouda Not available 03/04/2024 11:28:38 getting back to normal after low back pain: care instructions mshenouda Not available 03/04/2024 11:28:39 learning about relief for back pain mshenouda Not available 03/04/2024 11:28:40 smoking cessatio n counseling, greater than 3 minutes up to 10 minutes* YVONNE Not available 03/11/2024 04:05:42 medicare preventive services guide mshenouda Not available 03/04/2024 11:28:40 advance care planning: care instructions mshenouda Not available 03/04/2024 11:28:40 uterine fibroids : care instructions mshenouda Not available 03/04/2024 11:28:39 infection from tattoos: care instructions mshenouda Not available 03/04/2024 11:28:39 learning about asthma mshenouda Not available 03/04/2024 11:28:39 type 2 diabetes: care instructions mshenouda Not available 03/04/2024 11:28:40 learning about healthy weight mshenouda Not available 03/04/2024 11:28:40 Discussed and explained advance directives such as standard forms to the patient. Face to face discussion lasted for a duration of _2__ minutes. mshenouda Not available 03/04/2024 11:21:26 05/16/2024 [id number] learning about asthma [facility] Not available 05/16/2024 15:40:49 Reason for Referral Diabetic Ophthalmology Refer ral for Type 2 diabetes mellitus without complication Referring Physician: Marcie Raines, Internal Medicine, Encounter Date: 03/09/2023 Diabetic Ophthalmology Refer ral for Type 2 diabetes mellitus without complication Referring Physician: Marcie Raines, Internal Medicine, Encounter Date: 09/12/2023 Educational Audiologist Referral for Sc reening for malignant neoplasm of cervix Referring Physician: Marcie Raines, Internal Medicine, Encounter Date: 03/04/2024 Diabetic Ophthalmology Refer ral for Type 2 diabetes mellitus without complication Referring Physician: Marcie Raines, Internal Medicine, Encounter Date: 03/04/2024 Chiropractor Referral for Lo w back pain Referring Physician: Marcie Raines, Internal Medicine, Encounter Date: 03/04/2024 Traffic Expert Referral for At ypical chest pain Referring Physician: Marcie Raines, Internal Medicine, Encounter Date: 05/16/2024 Results Created Date Observation Date Name Description Value Unit Range Abnormal Flag Note LastModifiedBy Organization Detail LastModifiedTime 06/10/19 24 06/12/2023 LIPID PANEL WITH REFLE X TO DIREC T LDL cholesterol, total 118 mg/dL <200 normal Not Available [place] [address] [facility] [place], [address], 06/12/2023 14:07:53 06/10/19 24 06/12/2023 LIPID PANEL WITH REFLE X TO DIREC T LDL HDL cholesterol 53 mg/dL > or = 50 normal Not Available [address], [address], 06/12/2023 14:07:53 06/10/19 24 06/12/2023 LIPID PANEL WITH REFLE X TO DIREC T LDL triglyceride s 51 mg/dL <150 normal Not Available [facility] [address] [address] [place], [address], 06/12/2023 14:07:53 06/10/19 24 06/12/2023 LIPID PANEL WITH REFLE X TO DIREC T LDL LDL-choleste rol 52 mg/dL _(teresa c) normal Refer ence range : <100 Lynne able range <100 mg/dL for prima ry preve ntion ; <70 mg/dL for patie nts with CHD or diabe tic patie nts with > or = 2 CHD risk facto rs. LDL-C is now calcu lated using the Brunilda n-[facility] kins thong perez, which is a valid ated novel oxana beth accur acy than the Fried td equat ion in the estim ation of LDL-C . Brunilda perez SS et al. LATA. 2013; 310(1 9): 2061- 2068 (http ://ed ucati on.Qu estDi charios tics. com/f aq/FA Q164) Not Available [address] [address] [place], [address], 06/12/2023 14:07:53 06/10/19 24 06/12/2023 LIPID PANEL WITH REFLE X TO DIREC T LDL chol/HDLC ratio 2.2 (calc ) <5.0 normal Not Available [address] [place], [address], 06/12/2023 14:07:53 06/10/19 24 06/12/2023 LIPID PANEL WITH REFLE X TO DIREC T LDL non HDL cholesterol 65 mg/dL _(teresa c) <130 normal For patie nts with diabe otf plus 1 major ASCVD risk facto r, treat ing to a non-H DL-C goal of <100 mg/dL (LDL- C of <70 mg/dL ) is consi dered a thera peuti c optio n. Not Available [address] [address] [place], [address], 06/12/2023 14:07:53 06/10/19 24 06/12/2023 COMPR EHENS MARY METAB OLIC PANEL glucose 90 mg/dL 65-99 normal Fasti ng refer ence inter sandra Not Available [address] [address] [place], [address], 06/12/2023 14:07:55 06/10/19 24 06/12/2023 COMPR EHENS MARY METAB OLIC PANEL urea nitrogen (BUN) 10 mg/dL 7-25 normal Not Available [address], [address], 06/12/2023 14:07:55 06/10/19 24 06/12/2023 COMPR EHENS MARY METAB OLIC PANEL creatinine 0.80 mg/dL 0.50-0 .99 normal Not Available [address] [address] [place], [address], 06/12/2023 14:07:55 06/10/19 24 06/12/2023 COMPR EHENS MARY METAB OLIC PANEL eGFR 91 mL/mi n/1.7 3m2 > or = 60 normal Not Available [address], [address], 06/12/2023 14:07:55 06/10/19 24 06/12/2023 COMPR EHENS MARY METAB OLIC PANEL BUN/creatini ne ratio SEE NOTE: (calc ) 6-22 Not Repor africa: BUN and Creat inine are withi n refer ence range . Not Available [address], [address], 06/12/2023 14:07:55 06/10/19 24 06/12/2023 COMPR EHENS MARY METAB OLIC PANEL sodium 138 mmol/ L 135-14 6 normal Not Available [address], [address], 06/12/2023 14:07:55 06/10/19 24 06/12/2023 COMPR EHENS MARY METAB OLIC PANEL potassium 4.1 mmol/ L 3.5-5. 3 normal Not Available [address], [address], 06/12/2023 14:07:55 06/10/19 24 06/12/2023 COMPR EHENS MARY METAB OLIC PANEL chloride 103 mmol/ L 98-110 normal Not Available [address], [address], 06/12/2023 14:07:55 06/10/19 24 06/12/2023 COMPR EHENS MARY METAB OLIC PANEL carbon dioxide 31 mmol/ L 20-32 normal Not Available [address], [address], 06/12/2023 14:07:55 06/10/19 24 06/12/2023 COMPR EHENS MARY METAB OLIC PANEL calcium 9.3 mg/dL 8.6-10 .2 normal Not Available [address], [address], 06/12/2023 14:07:55 06/10/19 24 06/12/2023 COMPR EHENS MARY METAB OLIC PANEL protein, total 6.7 g/dL 6.1-8. 1 normal Not Available [address], [address], 06/12/2023 14:07:55 06/10/19 24 06/12/2023 COMPR EHENS MARY METAB OLIC PANEL albumin 4.1 g/dL 3.6-5. 1 normal Not Available [address], [address], 06/12/2023 14:07:55 06/10/19 24 06/12/2023 COMPR EHENS MARY METAB OLIC PANEL globulin 2.6 g/dL_ (calc ) 1.9-3. 7 normal Not Available [address], [address], 06/12/2023 14:07:55 06/10/19 24 06/12/2023 COMPR EHENS MARY METAB OLIC PANEL albumin/glob ulin ratio 1.6 (calc ) 1.0-2. 5 normal Not Available [address], [address], 06/12/2023 14:07:55 06/10/19 24 06/12/2023 COMPR EHENS MARY METAB OLIC PANEL bilirubin, total 0.5 mg/dL 0.2-1. 2 normal Not Available [address], [address], 06/12/2023 14:07:55 06/10/19 24 06/12/2023 COMPR EHENS MARY METAB OLIC PANEL alkaline phosphatase 110 U/L 31-125 normal Not Available [address] [address] [place], [address], 06/12/2023 14:07:55 06/10/19 24 06/12/2023 COMPR EHENS MARY METAB OLIC PANEL AST 13 U/L 10-35 normal Not Available [address] [address] [place], [address], 06/12/2023 14:07:55 06/10/19 24 06/12/2023 COMPR EHENS MARY METAB OLIC PANEL ALT 9 U/L 6-29 normal Not Available [address] [address] [place], [address], 06/12/2023 14:07:55 06/10/19 24 06/12/2023 CBC (INCL UDES DIFF/ PLT) white blood cell count 5.2 thous and/u L 3.8-10 .8 normal Not Available [address] [address] [place], [address], 06/12/2023 14:07:56 06/10/19 24 06/12/2023 CBC (INCL UDES DIFF/ PLT) red blood cell count 4.15 kris on/uL 3.80-5 .10 normal Not Available [address] [address] [place], [address], 06/12/2023 14:07:56 06/10/19 24 06/12/2023 CBC (INCL UDES DIFF/ PLT) hemoglobin 13.3 g/dL 11.7-1 5.5 normal Not Available [address] [address] [place], [address], 06/12/2023 14:07:56 06/10/19 24 06/12/2023 CBC (INCL UDES DIFF/ PLT) hematocrit 39.8 % 35.0-4 5.0 normal Not Available [address] [address] [place], [address], 06/12/2023 14:07:56 06/10/19 24 06/12/2023 CBC (INCL UDES DIFF/ PLT) MCV 95.9 fL 80.0-1 00.0 normal Not Available [address], [address], 06/12/2023 14:07:56 06/10/19 24 06/12/2023 CBC (INCL UDES DIFF/ PLT) MCH 32.0 pg 27.0-3 3.0 normal Not Available [address], [address], 06/12/2023 14:07:56 06/10/19 24 06/12/2023 CBC (INCL UDES DIFF/ PLT) MCHC 33.4 g/dL 32.0-3 6.0 normal Not Available [address], [address], 06/12/2023 14:07:56 06/10/19 24 06/12/2023 CBC (INCL UDES DIFF/ PLT) RDW 13.3 % 11.0-1 5.0 normal Not Available [address], [address], 06/12/2023 14:07:56 06/10/19 24 06/12/2023 CBC (INCL UDES DIFF/ PLT) platelet count 269 thous and/u L 140-40 0 normal Not Available [address], [address], 06/12/2023 14:07:56 06/10/19 24 06/12/2023 CBC (INCL UDES DIFF/ PLT) MPV 10.4 fL 7.5-12 .5 normal Not Available [address], [address], 06/12/2023 14:07:56 06/10/19 24 06/12/2023 CBC (INCL UDES DIFF/ PLT) absolute neutrophils 1934 cells /uL 1500-7 800 normal Not Available [address], [address], 06/12/2023 14:07:56 06/10/19 24 06/12/2023 CBC (INCL UDES DIFF/ PLT) absolute lymphocytes 2496 cells /uL 850-39 00 normal Not Available [address], [address], 06/12/2023 14:07:56 06/10/19 24 06/12/2023 CBC (INCL UDES DIFF/ PLT) absolute monocytes 484 cells /uL 200-95 0 normal Not Available [address], [address], 06/12/2023 14:07:56 06/10/19 24 06/12/2023 CBC (INCL UDES DIFF/ PLT) absolute eosinophils 224 cells /uL 15-500 normal Not Available [address], [address], 06/12/2023 14:07:56 06/10/19 24 06/12/2023 CBC (INCL UDES DIFF/ PLT) absolute basophils 62 cells /uL 0-200 normal Not Available [address], [address], 06/12/2023 14:07:56 06/10/19 24 06/12/2023 CBC (INCL UDES DIFF/ PLT) neutrophils 37.2 % normal Not Available [address], [address], 06/12/2023 14:07:56 06/10/19 24 06/12/2023 CBC (INCL UDES DIFF/ PLT) lymphocytes 48.0 % normal Not Available [address], [address], 06/12/2023 14:07:56 06/10/19 24 06/12/2023 CBC (INCL UDES DIFF/ PLT) monocytes 9.3 % normal Not Available [facility] [address] [address] [place], [address], 06/12/2023 14:07:56 06/10/19 24 06/12/2023 CBC (INCL UDES DIFF/ PLT) eosinophils 4.3 % normal Not Available [facility] [address] [address] [place], [address], 06/12/2023 14:07:56 06/10/19 24 06/12/2023 CBC (INCL UDES DIFF/ PLT) basophils 1.2 % normal Not Available [facility] [address] [address] [place], [address], 06/12/2023 14:07:56 06/10/1906/12/2023 TSH TSH 1.97 mIU/L normal Refer ence Range > or = 20 Years 0.40- 4.50 Pregn facundo Range s First trime ster 0.26- 2.66 Secon d trime ster 0.55- 2.73 Third trime ster 0.43- 2.91 Not Available [facility] [address], [address], 06/12/2023 14:07:57 06/10/1906/12/2023 VITAM IN B12 vitamin B12 247 pg/mL 200-11 00 normal Pleas e Note: Altho ugh the refer ence range for vitam in B12 is 200-1 100 pg/mL , it has been repor africa that betwe en 5 and 10% of patie nts with value s betwe en 200 and 400 pg/mL may exper ience neuro psych iatri c and hemat ologi c abnor malit ies due to occul t B12 defic iency ; less than 1% of patie nts with value s above 400 pg/mL will have sympt oms. Not Available [facility] [address] [address] [place], [address], 06/12/2023 14:07:58 06/10/1906/12/2023 HEMOG LOBIN A1C hemoglobin A1C 5.3 %_of_ total _HGB <5.7 normal For the purpo se of anat lao for the prese nce of diabe otf: <5.7% Consi stent with the absen ce of diabe otf 5.7-6 .4% Consi stent with incre ased risk for diabe otf (pred iabet es) > or =6.5% Consi stent with diabe otf This assay resul t is consi stent with a decre ased risk of diabe otf. Curre ntly, no conse nsus exist s albaro madison use of hemog lobin A1c for diagn osis of diabe otf in child grzegorz. Accor ding to Ameri can Diabe otf Assoc iatio n (ADA) guide lines , hemog lobin A1c <7.0% repre sents optim al contr ol in non-p regna nt diabe tic patie nts. Diffe rent metri cs may apply to speci fic patie nt popul ation s. Stand ards of Medic al Care in Diabe otf(A DA). HbA1c perfo rmed on Abbot t platf orm. Not Available [facility] [address] [address] [place], [address], 06/12/2023 14:07:59 06/13/19 24 06/13/2023 robert metry testi ng* Spirometry Not Available [facility] [address], [place], [address], 06/13/2023 10:54:03 03/16/20 24 03/17/2024 LIPID PANEL WITH REFLE X TO DIREC T LDL cholesterol, total 117 mg/dL <200 normal Not Available [facility] [address] [place], [address], 03/17/2024 08:22:25 03/16/20 24 03/17/2024 LIPID PANEL WITH REFLE X TO DIREC T LDL HDL cholesterol 55 mg/dL > or = 50 normal Not Available [facility] [address] [place], [address], 03/17/2024 08:22:25 03/16/20 24 03/17/2024 LIPID PANEL WITH REFLE X TO DIREC T LDL triglyceride s 45 mg/dL <150 normal Not Available [facility] [address] [place], [address], 03/17/2024 08:22:25 03/16/20 24 03/17/2024 LIPID PANEL WITH REFLE X TO DIREC T LDL LDL-choleste rol 49 mg/dL _(teresa c) normal Refer ence range : <100 Lynne able range <100 mg/dL for prima ry preve ntion ; <70 mg/dL for patie nts with CHD or diabe tic patie nts with > or = 2 CHD risk facto rs. LDL-C is now calcu lated using the Brunilda n-[employer] kins calcu latjoe n, which is a valid ated novel pilio d provi gricelda crissy r accur acy than the Fried td equat ion in the estim ation of LDL-C . Brunilda perez SS et al. LATA. 2013; 310(1 9): 2061- 2068 (http ://ed ucati on.Qu jamieWhite Source. com/f aq/FA Q164) Not Available [facility] [address] [place], [address], 03/17/2024 08:22:25 03/16/20 24 03/17/2024 LIPID PANEL WITH REFLE X TO DIREC T LDL chol/HDLC ratio 2.1 (calc ) <5.0 normal Not Available [facility] [address] [place], [address], 03/17/2024 08:22:25 03/16/20 24 03/17/2024 LIPID PANEL WITH REFLE X TO DIREC T LDL non HDL cholesterol 62 mg/dL _(teresa c) <130 normal For patie nts with diabe otf plus 1 major ASCVD risk facto r, treat ing to a non-H DL-C goal of <100 mg/dL (LDL- C of <70 mg/dL ) is consi dered a thera peuti c optio n. Not Available [address] [address] [place], [address], 03/17/2024 08:22:25 03/16/20 24 03/17/2024 ALBUM IN, RANDO M URINE W/CRE ATINI NE creatinine, random urine 259 mg/dL 20-275 normal Not Available [place] [address] [place], [address], 03/17/2024 08:22:26 03/16/20 24 03/17/2024 ALBUM IN, RANDO M URINE W/CRE ATINI NE albumin, urine <0.2 mg/dL see note: normal Refer ence Range : Refer ence Range Not estab lishe d Not Available [address] [address] [place], [address], 03/17/2024 08:22:26 03/16/20 24 03/17/2024 ALBUM IN, RANDO M URINE W/CRE ATINI NE albumin/crea tinine ratio, random urine NOTE mg/g_ creat <30 normal NOTE: The urine album in value is less than 0.2 mg/dL there fore we are unabl e to calcu late excre tion and/o r creat inine ratio . The ADA defin es abnor malit ies in album in excre tion as follo ws: Album inuri a Categ ory Resul t (mg/g creat inine ) Meghan l to Mildl y incre ased <30 Moder ately incre ased 30-29 9 Sever fernie incre ased > OR = 300 The ADA recom mends that at least two of three speci mens colle cted withi n a 3-6 month perio d be abnor mal befor e consi french g a patie nt to be withi n a diagn ostic categ ory. Not Available [address] [address] [place], [address], 03/17/2024 08:22:26 03/16/20 24 03/17/2024 COMPR EHENS MARY METAB OLIC PANEL glucose 86 mg/dL 65-99 normal Fasti ng refer ence inter sandra Not Available [address], [address], 03/17/2024 08:22:27 03/16/20 24 03/17/2024 COMPR EHENS MARY METAB OLIC PANEL urea nitrogen (BUN) 11 mg/dL 7-25 normal Not Available [address], [address], 03/17/2024 08:22:27 03/16/20 24 03/17/2024 COMPR EHENS MARY METAB OLIC PANEL creatinine 0.81 mg/dL 0.50-0 .99 normal Not Available [address], [address], 03/17/2024 08:22:27 03/16/20 24 03/17/2024 COMPR EHENS MARY METAB OLIC PANEL eGFR 89 mL/mi n/1.7 3m2 > or = 60 normal Not Available [address], [address], 03/17/2024 08:22:27 03/16/20 24 03/17/2024 COMPR EHENS MARY METAB OLIC PANEL BUN/creatini ne ratio SEE NOTE: (calc ) 6-22 Not Repor africa: BUN and Creat inine are withi n refer ence range . Not Available [address], [address], 03/17/2024 08:22:27 03/16/20 24 03/17/2024 COMPR EHENS MARY METAB OLIC PANEL sodium 140 mmol/ L 135-14 6 normal Not Available [address], [address], 03/17/2024 08:22:27 03/16/20 24 03/17/2024 COMPR EHENS MARY METAB OLIC PANEL potassium 4.4 mmol/ L 3.5-5. 3 normal Not Available [address], [address], 03/17/2024 08:22:27 03/16/20 24 03/17/2024 COMPR EHENS MARY METAB OLIC PANEL chloride 104 mmol/ L 98-110 normal Not Available [address], [address], 03/17/2024 08:22:27 03/16/20 24 03/17/2024 COMPR EHENS MARY METAB OLIC PANEL carbon dioxide 30 mmol/ L 20-32 normal Not Available [address], [address], 03/17/2024 08:22:27 03/16/20 24 03/17/2024 COMPR EHENS MARY METAB OLIC PANEL calcium 9.0 mg/dL 8.6-10 .2 normal Not Available [address], [address], 03/17/2024 08:22:27 03/16/20 24 03/17/2024 COMPR EHENS MARY METAB OLIC PANEL protein, total 6.6 g/dL 6.1-8. 1 normal Not Available [address], [address], 03/17/2024 08:22:27 03/16/20 24 03/17/2024 COMPR EHENS MARY METAB OLIC PANEL albumin 4.0 g/dL 3.6-5. 1 normal Not Available [address], [address], 03/17/2024 08:22:27 03/16/20 24 03/17/2024 COMPR EHENS MARY METAB OLIC PANEL globulin 2.6 g/dL_ (calc ) 1.9-3. 7 normal Not Available [address], [address], 03/17/2024 08:22:27 03/16/20 24 03/17/2024 COMPR EHENS MARY METAB OLIC PANEL albumin/glob ulin ratio 1.5 (calc ) 1.0-2. 5 normal Not Available [address], [address], 03/17/2024 08:22:27 03/16/20 24 03/17/2024 COMPR EHENS MARY METAB OLIC PANEL bilirubin, total 0.4 mg/dL 0.2-1. 2 normal Not Available [address], [address], 03/17/2024 08:22:27 03/16/20 24 03/17/2024 COMPR EHENS MARY METAB OLIC PANEL alkaline phosphatase 98 U/L 31-125 normal Not Available [address], [address], 03/17/2024 08:22:27 03/16/20 24 03/17/2024 COMPR EHENS MARY METAB OLIC PANEL AST 18 U/L 10-35 normal Not Available [address], [address], 03/17/2024 08:22:27 03/16/20 24 03/17/2024 COMPR EHENS MARY METAB OLIC PANEL ALT 13 U/L 6-29 normal Not Available [address], [address], 03/17/2024 08:22:27 03/16/20 24 03/17/2024 CBC (INCL UDES DIFF/ PLT) white blood cell count 4.5 thous and/u L 3.8-10 .8 normal Not Available [address], [address], 03/17/2024 08:22:28 03/16/20 24 03/17/2024 CBC (INCL UDES DIFF/ PLT) red blood cell count 4.27 kris on/uL 3.80-5 .10 normal Not Available [address], [address], 03/17/2024 08:22:28 03/16/20 24 03/17/2024 CBC (INCL UDES DIFF/ PLT) hemoglobin 13.7 g/dL 11.7-1 5.5 normal Not Available [address], [address], 03/17/2024 08:22:28 03/16/20 24 03/17/2024 CBC (INCL UDES DIFF/ PLT) hematocrit 40.4 % 35.0-4 5.0 normal Not Available [address], [address], 03/17/2024 08:22:28 03/16/20 24 03/17/2024 CBC (INCL UDES DIFF/ PLT) MCV 94.6 fL 80.0-1 00.0 normal Not Available [address], [address], 03/17/2024 08:22:28 03/16/20 24 03/17/2024 CBC (INCL UDES DIFF/ PLT) MCH 32.1 pg 27.0-3 3.0 normal Not Available [address], [address], 03/17/2024 08:22:28 03/16/20 24 03/17/2024 CBC (INCL UDES DIFF/ PLT) MCHC 33.9 g/dL 32.0-3 6.0 normal For adult s, a sligh t decre ase in the calcu lated MCHC value (in the range of 30 to 32 g/dL) is most likel y not clini sussy signi shawna t; ronald er, it shoul d be inter prete d with cauti on in corre latio n with other red cell guille eters and the patie nt's clini teresa condi tion. Not Available [address] [address] [place], [address], 03/17/2024 08:22:28 03/16/20 24 03/17/2024 CBC (INCL UDES DIFF/ PLT) RDW 13.1 % 11.0-1 5.0 normal Not Available [address], [address], 03/17/2024 08:22:28 03/16/20 24 03/17/2024 CBC (INCL UDES DIFF/ PLT) platelet count 253 thous and/u L 140-40 0 normal Not Available [address], [address], 03/17/2024 08:22:28 03/16/20 24 03/17/2024 CBC (INCL UDES DIFF/ PLT) MPV 10.2 fL 7.5-12 .5 normal Not Available [address], [address], 03/17/2024 08:22:28 03/16/20 24 03/17/2024 CBC (INCL UDES DIFF/ PLT) absolute neutrophils 1535 cells /uL 1500-7 800 normal Not Available [address], [address], 03/17/2024 08:22:28 03/16/20 24 03/17/2024 CBC (INCL UDES DIFF/ PLT) absolute lymphocytes 2205 cells /uL 850-39 00 normal Not Available [address], [address], 03/17/2024 08:22:28 03/16/20 24 03/17/2024 CBC (INCL UDES DIFF/ PLT) absolute monocytes 405 cells /uL 200-95 0 normal Not Available [address], [address], 03/17/2024 08:22:28 03/16/20 24 03/17/2024 CBC (INCL UDES DIFF/ PLT) absolute eosinophils 315 cells /uL 15-500 normal Not Available [address], [address], 03/17/2024 08:22:28 03/16/20 24 03/17/2024 CBC (INCL UDES DIFF/ PLT) absolute basophils 41 cells /uL 0-200 normal Not Available [address], [address], 03/17/2024 08:22:28 03/16/20 24 03/17/2024 CBC (INCL UDES DIFF/ PLT) neutrophils 34.1 % normal Not Available [address], [address], 03/17/2024 08:22:28 03/16/20 24 03/17/2024 CBC (INCL UDES DIFF/ PLT) lymphocytes 49.0 % normal Not Available [address], [address], 03/17/2024 08:22:28 03/16/20 24 03/17/2024 CBC (INCL UDES DIFF/ PLT) monocytes 9.0 % normal Not Available [facility] [address], [address], 03/17/2024 08:22:28 03/16/20 24 03/17/2024 CBC (INCL UDES DIFF/ PLT) eosinophils 7.0 % normal Not Available [facility] [address], [address], 03/17/2024 08:22:28 03/16/20 24 03/17/2024 CBC (INCL UDES DIFF/ PLT) basophils 0.9 % normal Not Available [address], [address], 03/17/2024 08:22:28 03/16/20 24 03/17/2024 C-PEP TIDE C-peptide 2.00 NG/mL 0.80-3 .85 normal Not Available [facility] [address] [place], [address], 03/17/2024 08:22:29 03/16/20 24 03/17/2024 TSH TSH 1.61 mIU/L normal Refer ence Range > or = 20 Years 0.40- 4.50 Pregn facundo Range s First trime ster 0.26- 2.66 Secon d trime ster 0.55- 2.73 Third trime ster 0.43- 2.91 Not Available [facility] [address] [place], [address], 03/17/2024 08:22:30 03/16/20 24 03/17/2024 VITAM IN B12 vitamin B12 264 pg/mL 200-11 00 normal Pleas e Note: Altho ugh the refer ence range for vitam in B12 is 200-1 100 pg/mL , it has been repor africa that betwe en 5 and 10% of patie nts with value s betwe en 200 and 400 pg/mL may exper ience neuro psych iatri c and hemat ologi c abnor malit ies due to occul t B12 defic iency ; less than 1% of patie nts with value s above 400 pg/mL will have sympt oms. Not Available [facility] [address] [place], [address], 03/17/2024 08:22:31 03/16/20 24 03/17/2024 HEMOG LOBIN A1C hemoglobin A1C 5.7 %_of_ total _HGB <5.7 high For someo ne witho ut known diabe otf, a hemog lobin A1c value betwe en 5.7% and 6.4% is consi stent with predi abete s and shoul d be confi rmed with a follo w-up test. For someo ne with known diabe otf, a value <7% indic ates that their diabe otf is well contr olled . A1c targe ts shoul d be indiv idual ized based on durat ion of diabe otf, age, comor bid condi tions , and other consi derat ions. This assay resul t is consi stent with an incre ased risk of diabe otf. Curre ntly, no conse nsus exist s albaro madison use of hemog lobin A1c for diagn osis of diabe otf for child grzegorz. Not Available [facility] [address] [address], [place], [address], 03/17/2024 08:22:32 03/09/20 23 [facility] [place] [address] Orderi ng Provid er: MARCIE HUSSEIN EXAMIN ATION: Right knee ACCESS ION: [id number] EXAM DATE: 2022 11:51 AM REASON FOR EXAM: Pain in right knee COMPAR BRANDT: None TECHNI QUE: 3 views FINDIN GS: Mild soft tissue swelli ng. Small joint effusi on. No acute fractu re or disloc ation. IMPRES TOYA: 1. No acute findin gs. Referr ed By: MARCIE HUSSEIN Electr onical ly Signed By: Gustavo Hagen MD on 2022 4:32 PM Interp reted By: Gustavo Hagen MD, 2022 4:31 PM [facility] [address] [facility], [place], [address], 06/13/2023 10:50:55 03/15/20 23 MAMMO , scree shilo, tomos ynthe sis, bilat eral [facility] [place] [address] Orderi ng Provid er: MARCIE HUSSEIN This is a summar y report . The comple te report is availa ble in the patien t's medica l record . If you cannot access the medica l record , please contac t the sendin g organi zation for a detail ed fax or copy. Examin ation: Screen ing bilate ral mammog toya Exam Date: 2022 11:08 AM Access ion: [id number] Clinic al histor y: Routin e screen ing. Compar brandt: 2021, 2018 Techni que: Digita l screen ing mammog reina of both breast s was perfor med. Breast tomosy nthesi s acquis itions were obtain ed and review ed. This study was read with the assist ance of a [place] er-aid ed detect ion system . Tissue densit y: There are scatte red areas of fibrog landul ar densit y. Findin gs: No suspic ious masses , malign ant appear ing calcif icatio ns, skin thicke sihlo or other abnorm alitie s are presen t. No signif icant change from the prior exam. IMPRES TOYA: No suspic ious mammog raphic findin gs. Recomm endati on: 1. Routin e Screen ing, Bilate ral Assess ment: ACR BI-RAD S 1 - NEGATI VE Ordere d By: MARCIE ELY DA Electr onical ly Signed By: Garry Boothe MD on 023 7:38 AM Interp reted By: Garry Boothe MD, 023 7:33 AM [facility] [address] [place], [address], 06/13/2023 10:50:55 03/15/20 23 03/09/2023 MAMMO , scree shilo, digit al, bilat eral No observ ation record ed. [facility], [place], [address], 06/13/2023 10:50:55 06/13/19 24 06/13/2023 robert metry testi ng* No observ ation record ed. [facility], [facility] [address], [place], [address], 09/12/2023 10:17:56 03/04/20 24 03/04/2024 elect rocar diogr am No observ ation record ed. [facility] [address], [place], [address], 05/16/2024 15:34:59 03/04/20 24 03/04/2024 US, echoc ardio gram No observ ation record ed. [facility] [address], [place], [address], 05/16/2024 15:34:59 03/04/20 24 03/04/2024 elect rocar diogr am No observ ation record ed. [facility] [address], [place], [address], 05/16/2024 15:34:59 04/22/20 24 04/21/2024 XR, chest No observ ation record ed. [address], [place], [address], 05/16/2024 15:34:59 05/17/19 25 04/21/2024 elect rocar diogr am No observ ation record ed. [id number], [place], [address], 05/29/2024 14:20:28 05/27/19 25 05/25/2024 MAMMO , scree shilo, digit al, bilat eral No observ ation record ed. [facility] [address] [facility], [place], [address], 05/28/2024 10:29:18 06/21/19 25 06/12/2024 US, echoc ardio gram No observ ation record ed. [facility] [address], [place], [address], 06/25/2024 17:09:12 Result Notes Documentation Provider Name and Address Organization Details Recorded Time Mammo, Screening, Tomosynthesis, Bilateral : [facility] [address] [facility] [address] [address] Ordering Provider: MARCIE RAINES This is a summary report. The complete report is available in the patient's medical record. If you cannot access the medical record, please contact the sending organization for a detailed fax or copy. Examination: Screening bilateral mammogram Exam Date: 03/09/2023 [...] ACR BI-RADS 1 - NEGATIVE Ordered By: MARCIE RAINES Interpreted By: Garry Boothe MD, 03/15/2023 7:33 AM Marcie Raines MD [address], [place], [address], [facility] 06/13/2023 10:50:55 Problems Name Problem SNOMED Code Status Onset Date Resolution Date Notes Provider Name and Address Organization Details Recorded Time Tobacco dependen ce, continuo 114396068 Active 2018 Not Available [facility] 4 15:46:31 Type 2 diabetes mellitus without complica tion 422770462 Active 2018 Dxed by her previous e PCP Not Available [facility] 4 15:46:32 Tattoo of skin 59065106574 2 Active 2018 Not Available [facility] 4 15:46:32 Acquired bilatera l pes planus 59165017825 940321 Active 2018 Not Available [facility] 4 15:46:31 Thyroid nodule 944141115 Completed 201908/28/2019 Marcie Raines MD [address], [place], [address] , [place] [facility] 0 17:56:21 Uterine leiomyom a 18421745 Active 2019 Not Available [facility] 4 15:46:32 Mixed hyperlip idemia 164077659 Active 2019 Not Available [facility] 4 15:46:32 Asthma 518158630 Active 2019 Not Available [facility] 4 15:46:31 Symptoma tic sinus bradycar rakesh 498889514 Active 2020 Not Available [facility] 4 15:46:32 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 088331284 Active 2020 Not Available [facility] 4 15:46:32 Gastroes ophageal reflux disease without esophagi tis 177497648 Active 2020 Not Available [facility] 4 15:46:32 Low back pain 079428427 Active 2020 Not Available [facility] 4 15:46:32 Chronic constipa tion 667501181 Active 2021 Not Available [facility] 4 15:46:32 Long-ter m drug therapy Active 2021 Not Available [facility] 4 15:46:32 Family history of coronary arterios clerosis 769490094 Active 2021 Not Available [facility] 4 15:46:32 Serum vitamin B12 below referenc e range 268240253 Active 2022 Not Available [facility] 4 15:46:31 Body mass index 25-29 - overweig ht 847881470 Active 2022 Not Available [facility] 4 15:46:31 Electroc ardiogra m abnormal 688165302 Active 2023 Marcie Raines MD [address], [place], [address] , [facility] 4 11:42:03 Notes:no nodule on US 06/2019 Problem Notes None recorded. Procedures Surgical History Date Name Laterality Status Provider Name and Address Organization Details Recorded Time 4 Diabetic Foot Exam completed Marcie Raines MD [address], [place], [address], [facility] 03/04/2024 11:25:30 4 Diabetic Foot Exam completed Marcie Raines MD [address], [place], [address], [facility] 09/12/2023 10:26:32 4 Diabetic Foot Exam completed Marcie Raines MD [address], [place], [address], [facility] 06/13/2023 10:55:23 3 Diabetic Foot Exam completed Marcie Raines MD [address], [place], [address], [facility] 03/09/2023 11:45:29 3 Diabetic Foot Exam completed Marcie Raines MD [address], [place], [address], [facility] 12/23/2022 11:53:58 3 Diabetic Foot Exam completed Marcie Raines MD [address], [place], [address], [facility] 09/22/2022 10:06:38 3 Diabetic Foot Exam completed Marcie Raines MD [address], [place], [address], [facility] 06/23/2022 10:05:50 2 Diabetic Foot Exam completed Marcie Raines MD [address], [place], [address], [facility] 03/23/2022 09:55:51 2 Diabetic Foot Exam completed Marcie Raines MD [address], [place], [address], [facility] 12/21/2021 14:13:20 2 Diabetic Foot Exam completed Marcie Raines MD [address], [place], [address], [facility] 09/01/2021 17:57:46 2 Diabetic Foot Exam completed Marcie Raines MD [address], [place], [address], [facility] 06/03/2021 17:01:27 1 Colonoscopy completed Marcie Raines MD [address], [place], [address], [facility] 03/11/2021 13:36:28 1 Diabetic Foot Exam completed Marcie Raines MD [address], [place], [address], [facility] 03/03/2021 16:43:47 1 Diabetic Foot Exam completed Marcie Raines MD [address], [place], [address], [facility] 11/23/2020 16:57:02 1 Diabetic Foot Exam completed Marcie Raines MD [address], [place], [address], [facility] 08/24/2020 17:12:55 1 Diabetic Foot Exam completed Marcie Raines MD [address], [place], [address], [facility] 05/25/2020 18:19:49 0 Diabetic Foot Exam completed Marcie Raines MD [address], [place], [address], [facility] 02/26/2020 17:40:54 0 Diabetic Foot Exam completed Marcie Raines MD [address], [place], [address], [facility] 11/27/2019 17:55:56 0 Diabetic Foot Exam completed Marcie Raines MD [address], [place], [address], [facility] 08/28/2019 17:59:13 0 Diabetic Foot Exam completed Marcie Raines MD [address], [place], [address], [facility] 05/29/2019 15:59:32 Imaging Results None recorded. Procedure Notes None recorded. Medical Equipment None Reported. Allergies Allergen ID Allergen Name Allergen Category Reaction Reaction Severity Criticality Documentation Date Start Date Code Code System Note Provider Name and Address Organization Details Recorded Time 20371 Shellfish (substanc e) food,medi cation anaphylax is dyspnea hives itching palpitati ons rash swelling Not available Not available Not available Not available Not available Not available Not available high 09/05/20242019 19774 9006 SNOMED Not Available yvonne - External Data Service - prod 5 15:53:13 8559 shrimp allergeni c extract food hives Not available Not available 02/27/2019 46436 2 RxNorm Gigi Merrill [facility] 9 16:00:54 Medications Name Sig Start Date Stop Date Status Note LastModified by Organization Details LastModified Time sleepio mis active Not Available Not A vailable Not Available metformin 500 mg tablet Take 1 tablet twice a day by oral route. 03/23 completed Not Available Not Available Not Available bupropion HCl SR 150 mg tablet,12 hr sustained-r elease 02/27 completed Not Available Not Available Not Available clindamycin HCl 300 mg capsule TAKE 1 CAPSULE BY MOUTH THREE TIMES DAILY UNTIL ALL TAKEN 06/03 completed Not Available Not Available Not Available metronidazo le 500 mg tablet 08/27 completed Not Available Not Available Not Available fluocinonid e 0.05 % topical ointment 02/09 /2023 completed Not Available Not Available Not Available tretinoin 0.05 % topical cream 09/01 completed Not Available Not Available Not Available amoxicillin 500 mg tablet 02/27 completed Not Available Not Available Not Available amoxicillin 875 mg tablet TAKE 1 TABLET BY MOUTH TWICE DAILY 09/11 completed Not Available Not Available Not Available famotidine 20 mg tablet Take 1 tablet twice a day by oral route. 06/23 completed Not Available Not Available Not Available prednisolon e acetate 1 % eye drops,suspe nsion 02/25 completed Not Available Not Available Not Available pravastatin 10 mg tablet Take 1 tablet every day by oral route. 03/23 completed Not Available Not Available Not Available dicyclomine 20 mg tablet 02/27 completed Not Available Not Available Not Available baclofen 10 mg tablet Take 1 tablet twice a day by oral route. 03/03 completed Not Available Not Available Not Available esomeprazol e magnesium 40 mg capsule,del ayed release 02/27 completed Not Available Not Available Not Available triamcinolo ne acetonide 0.1 % topical ointment APPLY TOPICALLY ONLY TO ITCHY SPOTS ON HANDS TWICE DAILY NEEDED FOR RASH 09/01 completed Not Available Not Available Not Available Exelderm 1 % topical solution active Not Available Not Available Not Available epinephrine 0.3 mg/0.3 mL injection, auto-inject or use directed active Not Available Not Available No t Available ibuprofen 600 mg tablet TAKE 1 TABLET BY MOUTH FOUR TIMES DAILY NEEDED FOR PAIN 06/03 completed Not Available Not Available Not Available methylpredn isolone 4 mg tablets in a dose pack 11/26 completed Not Available Not Available Not Available albuterol sulfate HFA 90 mcg/actuati on aerosol inhaler INHALE 2 PUFFS BY MOUTH EVERY 8 HOURS NEEDED active Not Available Not Available No t Available metformin ER 500 mg tablet,exte nded release 24 hr TK 1 T PO BID 05/25 completed Not Available Not Available Not Available lisinopril 2.5 mg tablet Take 1 tablet every day by oral route. 03/23 completed Not Available Not Available Not Available doxycycline hyclate 100 mg tablet 08/27 completed Not Available Not Available Not Available Tylenol Extra Strength 500 mg tablet Take 2 tablets every 8 hours by oral route around the clock. 06/23 completed Not Available Not Available Not Available Vitamin B-12 2,[address] 1 tablet every day by sublingua l route. active Not Available Not Available No t Available Senna Plus 8.6 mg-50 mg tablet Take 2 tablets every day by oral route. active Not Available Not Available No t Available varenicline tartrate 0.5 mg (11)-1 mg (42) tablets in a dose pack Take 1 startr pk by oral route as directed. active Not Available Not Available No t Available metformin ER 500 mg 24 hr tablet,exte nded release (gastric retention) 1 Tab PO BID active Not Available Not Available No t Available diclofenac 1 % topical gel APPLY 2 GRAMS TO THE AFFECTED AREA(S) BY TOPICAL ROUTE 4 TIMES PER DAY active Not Available Not Available No t Available diflupredna te 0.05 % eye drops INSTILL 1 DROP IN RIGHT EYE TWICE DAILY active Not Available Not Available No t Available Chantix Continuing Month Box 1 mg tablet Take 1 tablet twice a day by oral route. 02/25 completed Not Available Not Available Not Available Linzess 290 mcg capsule Take 1 capsule every day by oral route. 06/23 completed Not Available Not Available Not Available Jublia 10 % topical solution with applicator APPLY TO AFFECTED TOENAIL(S ) BY TOPICAL ROUTE ONCE DAILY 02/25 completed Not Available Not Available Not Available Bydureon BCise 2 mg/0.85 mL subcutaneou s auto-inject or INJECT 2MG UNDER THE SKIN Q WEEK 06/03 completed Not Available Not Available Not Available Ozempic 0.25 mg or 0.5 mg (2 mg/1.5 mL) subcutaneou s pen injector Inject 0.5 mg every week by subcutane ous route. 09/22 completed Not Available Not Available Not Available Rybelsus 7 mg tablet Take 1 tablet every day by oral route in the morning. 06/23 completed Not Available Not Available Not Available Rybelsus 3 mg tablet Take 1 tablet every day by oral route. 09/01 completed Not Available Not Available Not Available Ozempic 1 mg/dose (4 mg/3 mL) subcutaneou s pen injector Inject 1 mg every week by subcutane ous route. 03/04 completed Not Available Not Available Not Available Ozempic 0.25 mg or 0.5 mg (2 mg/3 mL) subcutaneou s pen injector 2023 active Not Available Not Available Not Avai lable Vitals Date Recorded Body mass index (BMI) Body weight Provider Name and Address Organization Details Last Updated DateTime 05/16/2024 43.5 kg/m2 148052.42 g Marcie Raines MD [address] [facility] [address], [place], [address], [facility] 05/16/2024 15:33:37 Date Recorded Body height Body temperature Respiratory rate Heart rate Systolic And Diastolic Provider Name and Address Organization Details Last Updated DateTime 5 172.72 cm 98.7 [degF] 16 /min 49 /min 119/72 mm[Hg] Qian [facility] 5 15:06:51 Date Recorded Body height Body mass index (BMI) Body weight Respiratory rate Body temperature Heart rate Systolic And Diastolic Provider Name and Address Organization Details Last Updated DateTime 4 172.72 cm 28.1 kg/m2 65779.5 9 g 16 /min 98.7 [degF] 54 /min 110/60 mm[Hg] Qian [facility] 4 10:37:07 Date Recorded Body height Heart rate Respiratory rate Body temperature Body mass index (BMI) Body weight Systolic And Diastolic Provider Name and Address Organization Details Last Updated DateTime 4 172.72 cm 53 /min 16 /min 98 [degF] 26.8 kg/m2 58771.2 6 g 112/63 mm[Hg] Qian [facility] 4 10:00:58 Date Recorded Body height Body temperature Respiratory rate Heart rate Body mass index (BMI) Body weight Systolic And Diastolic Provider Name and Address Organization Details Last Updated DateTime 4 172.72 cm 97.9 [degF] 16 /min 58 /min 28.6 kg/m2 90927.3 7 g 116/63 mm[Hg] Qian Binh [facility] 4 10:54:07 Date Recorded Body height Body mass index (BMI) Body weight Body temperature Respiratory rate Heart rate Systolic And Diastolic Provider Name and Address Organization Details Last Updated DateTime 3 172.72 cm 28.3 kg/m2 70840.1 8 g 97.9 [degF] 16 /min 52 /min 123/76 mm[Hg] Qian Purcell [facility] 3 11:23:09 Social History Question Answer Notes LastModified by [email or web address] Details LastModified Time Tobacco Smoking Status Current Every Day Smoker Marcie Raines MD [address] [place] [address] [address], [place], [address], [facility] 02/27/2019 16:22:09 What Is Your Level Of Caffeine Consumption? Heavy [email or web address] Information not available 06/23/2022 Which Illicit Or Recreational Drugs Have You Used? No Information not available 02/27/2019 Are There Any Guns Present In Your Home? Yes [email or web address] Information not available 06/23/2022 Live Alone Or With Others? With Others [email or web address] Information not available 06/23/2022 Marital Status [email or web address] Informatio n not available 06/23/2022 What Was The Date Of Your Most Recent Tobacco Screening? 09/01/2021 Information not available 06/23/2022 Performs Monthly Self-breast Exam? Yes [email or web address] Information no t available 06/23/2022 Seat Belts Used Routinely Yes [email or web address] Information not available 06/23/2022 Smoke Alarm In Home Yes [email or web address] Information not available 06/23/2022 At What Age Did You Start Smoking Tobacco? 22 Information not available 02/27/2019 How Much Tobacco Do You Smoke? 1 PPW Information not available 02/27/2019 Do You Use Sunscreen Routinely? No Information not available 06/23/2022 Sex: Unknown Functional Status Question Answer Note LastModified by Organizat ion Details LastModified Time What is your level of alcohol consumption? Occasional Information not available 02/27/2019 Are you currently employed? Yes [email or web address] Information not available 06/23/2022 Are you able to care for yourself independently? Yes Information not available 06/23/2022 Mental Status None recorded. Family History Relationship Description Onset Age of this Age Resolved Age Notes LastModified by Organization Details LastModified Time Mother Malignant neoplasm of lung 51 [email or web address] Not available 2018 16:21:03 Mother Cerebrovascu lar accident 36 [email or web address] Not available 16:21:16 Mother Benign hypertension [email or web address] Not available 16:21:34 Mother Coronary arterioscler osis 51 [email or web address] Not available 2021 17:54:44 Father Benign hypertension [email or web address] Not available 16:21:34 Medical History No medical history recorded. Gynecological HistoryNo gynecological history recorded. Obstetrics History GPAL:G 0 P 0 0 0 0 Immunizations Vaccine Type Date Status Note Provider Nam e and Address Organization Details Recorded Time SARS-COV-2 (COVID-19) vaccine, UNSPECIFIED 1 completed Not Available [facility] 06/08/2023 15:46:32 COVID-19, mRNA, LNP-S, PF, 30 mcg/0.3 mL dose 2 completed Not Available [facility] 06/08/2023 15:46:32 Past Encounters Encounter ID Performer Location Encounter Start Date Encounter Closed Date Diagnosis/Indication Diagnosis SNOMED-CT Code Diagnosis ICD10 Code Diagnosis Note [id number] Marcie Raines MD [facility], [facility] [address] [place] [address] 02/27/2019 15:44:54 02/27/2019 16:50:33 Type 2 diabetes mellitus without complication 544573777 E11.9 per pt had optometry eval 10/2018 Body mass index 30+ - obesity 208649968 Z68.35 education Tobacco de pendence, continuous 487161641 F17.290 Screening mammography 24 376364 Z12.31 per pt had mammogram @ [facility] 12/2018 Screening for malignant neoplasm of cervix 401526960 Z12.4 per pt had PAP 2018 Active or passive immunization 007254160 Z23 Cholesterol screening 27 6355183 Z13.220 Tattoo of skin 509519668 1 02 L81.8 Acquired b ilateral pes planus 1299954155 2009044 M21.41 Low back pain 887642075 M54.5 [id number] Marcie Raines MD [facility], [facility] [address] [place] [address] 05/29/2019 15:33:55 05/29/2019 16:06:04 Adult health examination 768722692 Z00.01 Type 2 rakesh betes mellitus without complication 970924632 E11.9 per pt had optometry eval 10/2018add bydureon to help with weight Tobacco de pendence, continuous 239183321 F17.290 Tattoo of skin 679449299 1 02 L81.8 Hep c Abx -ve 03/09/19 Body mass index 30+ - obesity 506560864 Z68.35 education Screening mammography 24 516409 Z12.31 per pt had mammogram @ [facility] 12/2018 Screening for malignant neoplasm of cervix 371472418 Z12.4 per pt had PAP 2018 Active or passive immunization 293193692 Z23 Acquired b ilateral pes planus 6985866289 3588842 M21.41 arch support Thyroid nodule 249349843 E04.1 [id number] Marcie Raines MD [facility], [facility] [address] [place] [address] 08/28/2019 17:27:44 08/28/2019 18:08:23 Type 2 diabetes mellitus without complication 844811985 E11.9 per pt had optometry eval 10/2018 Tobacco de pendence, continuous 511877807 F17.290 Uterine leiomyoma 288299 05 D25.9 Screening mammography 24 303723 Z12.31 per pt had mammogram @ [facility] 12/2018 Screening for malignant neoplasm of cervix 865050691 Z12.4 per pt had PAP 2018 Active or passive immunization 144621228 Z23 Onychomyco sis of toenails 058872950 B35.1 [id number] Marcie Raines MD [facility], [facility] [address] [place] [address] 11/27/2019 17:20:43 11/27/2019 18:04:25 Type 2 diabetes mellitus without complication 839155815 E11.9 per pt had optometry eval 10/2018 Tobacco de pendence, continuous 122117524 F17.290 Body mass index 30+ - obesity 262914363 Z68.35 educationl ost 6 LBs Mixed hyperlipidemia 267 488556 E78.2 Screening mammography 24 317298 Z12.31 per pt had mammogram @ [facility] 12/2018 Screening for malignant neoplasm of cervix 137292038 Z12.4 per pt had PAP 2018 Active or passive immunization 019809082 Z23 [id number] Marcie Raines MD [facility], [facility] [address] [place] [address] 02/26/2020 17:23:11 02/26/2020 17:56:36 Type 2 diabetes mellitus without complication 201207527 E11.9 per pt had optometry eval Dr [address] 02/20/20 Mixed hyperlipidemia 267 988663 E78.2 Tobacco de pendence, continuous 809579708 F17.290 Body mass index 30+ - obesity 085569202 Z68.35 education Tattoo of skin 203980449 1 02 L81.8 Hep c Abx -ve 03/09/19 Screening mammography 24 852295 Z12.31 per pt had mammogram @ [facility] 12/2018 Screening for malignant neoplasm of cervix 271565358 Z12.4 per pt had PAP 2018 Active or passive immunization 171762819 Z23 Low back pain 000268866 M54.5 [id number] Marcie Raines MD [facility], [facility] [address] [place] [address] 04/01/2020 17:11:25 04/01/2020 17:49:32 Syncope 233816686 R55 No drining Symptomati c sinus bradycardia 008184090 R00.1 [id number] Marcie Raines MD [facility], [facility] [address] [place] [address] 05/25/2020 17:55:19 05/25/2020 18:23:09 Type 2 diabetes mellitus without complication 080433169 E11.9 per pt had optometry [address] 02/20/20las t A1c 03/07/20la st CASSI 03/07/20 Tobacco de pendence, continuous 345549082 F17.290 Body mass index 30+ - obesity 199126523 Z68.35 education Mixed hyperlipidemia 267 898944 E78.2 last LDL 03/07/20 Syncope 746948241 R55 seen cardiology ?? Vasovagal Symptomati c sinus bradycardia 999223350 R00.1 cardiology workup is -ve Screening mammography 24 959856 Z12.31 per pt had mammogram @ [facility] 12/2018 Screening for malignant neoplasm of cervix 204531339 Z12.4 per pt had PAP 2018 Active or passive immunization 908307507 Z23 [id number] Marcie Raines MD [facility], [facility] [address] [place] [address] 08/24/2020 16:56:38 08/24/2020 17:20:40 Mixed hyperlipidemia 772123379 E78.2 last LDL 03/07/20 Tobacco de pendence, continuous 716901324 F17.290 education last PFT 02/26/20 Type 2 rakesh betes mellitus without complication 584123033 E11.9 per pt had optometry eval Dr Lane 02/20/20las t A1c 03/07/20la st CASSI 03/07/20 Body mass index 30+ - obesity 339464771 Z68.35 education lost 7 LBs on diet and exercise Symptomati c sinus bradycardia 204540930 R00.1 cardiology workup is -ve Screening mammography 24 503394 Z12.31 per pt had mammogram @ [facility] 12/2018 Screening for malignant neoplasm of cervix 917362738 Z12.4 per pt had PAP 2018 Active or passive immunization 834884811 Z23 up to date Adult heal th examination 965442382 Z00.01 Tattoo of skin 136489066 1 02 L81.8 Hep c Abx -ve 03/09/19 Uterine leiomyoma 323939 05 D25.9 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 Acquired b ilateral pes planus 7011540692 5210493 M21.41 arch support Asthma 471718807 J45.90 9 stable Low back pain 004065218 M54.5 [id number] Marcie Raines MD [facility], [facility] [address] [place] [address] 11/23/2020 16:18:55 11/23/2020 17:04:13 Asthma 776062235 J45.909 stable , last PFT 02/26/20 Body mass index 30+ - obesity 995530845 Z68.35 education on diet and exercise Mixed hyperlipidemia 267 819687 E78.2 last LDL 09/19/20 Symptomati c sinus bradycardia 971738454 R00.1 cardiology workup is -ve Tobacco de pendence, continuous 683401323 F17.290 education last PFT 02/26/20 Type 2 rakesh betes mellitus without complication 708651214 E11.9 per pt had optometry eval Dr [address] 02/20/20las t A1c 09/19/20last CASSI 03/07/20 Screening mammography 24 239856 Z12.31 per pt had mammogram @ [facility] 12/2018 Screening for malignant neoplasm of cervix 361164129 Z12.4 per pt had PAP 2018 Screening for malignant neoplasm of colon 863408348 Z12.11 Active or passive immunization 647437528 Z23 up to date [id number] Marcie Raines MD [facility], [facility] [address] [place] [address] 03/03/2021 16:10:56 03/03/2021 16:54:01 Type 2 diabetes mellitus without complication 849387857 E11.9 per pt had optometry eval Dr Lane 02/25/21la st A1c 09/19/20last CASSI 03/07/20 Mixed hyperlipidemia 267 823505 E78.2 last LDL 09/19/20 Asthma 933182649 J45.90 9 stable , last PFT 02/26/20 Body mass index 30+ - obesity 245856868 Z68.35 education lost 7 LBs on diet and exercise Tattoo of skin 499173283 1 02 L81.8 Hep c Abx -ve 03/09/19 Tobacco de pendence, continuous 631891227 F17.290 education last PFT 02/26/20 Symptomati c sinus bradycardia 564615461 R00.1 cardiology workup is -ve Gastroesop hageal reflux disease without esophagitis 183479776 K21.9 Screening mammography 24 218816 Z12.31 per pt had mammogram @ [facility] 12/2018 Screening for malignant neoplasm of cervix 501975204 Z12.4 per pt had PAP 2018 Screening for malignant neoplasm of colon 787385390 Z12.11 Active or passive immunization 229110231 Z23 up to date Low back pain 448369714 M54.50 off work 3 days [id number] Marcie Raines MD [facility], [facility] [address] [place] [address] 06/03/2021 16:09:53 06/03/2021 17:14:08 Mixed hyperlipidemia 806190276 E78.2 last LDL 03/06/21 Tobacco de pendence, continuous 196044088 F17.290 education last PFT 02/26/20 Type 2 rakesh betes mellitus without complication 519382663 E11.9 per pt had optometry eval Dr Lane 02/25/21la st A1c 09/19/20last CASSI 03/06/21 Body mass index 30+ - obesity 597289493 Z68.35 education diet and exercise Tattoo of skin 561874426 1 02 L81.8 Hep c Abx -ve 03/09/19 Chronic constipation 236 692259 K59.09 GI started linzess 290 Screening mammography 24 231087 Z12.31 per pt had mammogram @ [facility] 12/2018 Screening for malignant neoplasm of cervix 689477323 Z12.4 per pt had PAP 2018 Screening for malignant neoplasm of colon 116513755 Z12.11 last C scope 03/11/21 , good for 5 years Active or passive immunization 048126742 Z23 up to date Long-term drug therapy 088361005 Z79.899 metformin [id number] Marcie Raines MD [facility], [facility] [address] [place] [address] 09/01/2021 17:12:22 09/01/2021 18:17:36 Adult health examination 943199427 Z00.01 Type 2 rakesh betes mellitus without complication 033576056 E11.9 per pt had optometry eval Dr Lane 02/25/21la st A1c 09/19/20last CASSI 03/06/21 Mixed hyperlipidemia 267 405811 E78.2 last LDL 03/06/21 Low back pain 140093551 M54.50 off work 3 days Long-term drug therapy 158667829 Z79.899 metformin Gastroesop hageal reflux disease without esophagitis 111255898 K21.9 stable Chronic constipation 236 113368 K59.09 GI started linzess 290 Body mass index 30+ - obesity 930214144 Z68.35 education diet and exercise Asthma 123925595 J45.90 9 stable , last PFT 03/03/21 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 635462246 T78.02XA education Acquired b ilateral pes planus 2230014948 3312186 M21.41 arch support Symptomati c sinus bradycardia 422128802 R00.1 cardiology workup is -ve Tattoo of skin 648795445 1 02 L81.8 Hep c Abx -ve 03/09/19 Tobacco de pendence, continuous 458299147 F17.290 education last PFT 03/03/21 Uterine leiomyoma 942701 05 D25.9 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 Screening for malignant neoplasm of colon 195979185 Z12.11 last C scope 03/11/21 , good for 5 years Screening mammography 24 684672 Z12.31 per pt had mammogram @ [facility] 12/2018 Screening for malignant neoplasm of cervix 189216536 Z12.4 per pt had PAP 2018 Active or passive immunization 657510949 Z23 decline flu shothad her COVID shots Family his tory of coronary arteriosclerosis 664837526 Z82.49 mother @30 [id number] Marcie Raines MD [facility] [address] [place] [address] 12/21/2021 13:54:22 12/21/2021 14:47:59 Asthma 481574014 J45.909 stable , last PFT 03/03/21 Body mass index 30+ - obesity 282467341 Z68.35 education diet and exercise Mixed hyperlipidemia 267 917009 E78.2 last LDL 03/06/21 Tobacco de pendence, continuous 881260486 F17.290 education last PFT 03/03/21 Type 2 rakesh betes mellitus without complication 623236160 E11.9 per pt had optometry eval Dr Lane 02/25/21la st A1c 09/04/21las jose YE 03/06/21 Screening mammography 24 821637 Z12.31 per pt had mammogram @ [facility] 12/2018 Screening for malignant neoplasm of cervix 559610034 Z12.4 per pt had PAP 2018 Screening for malignant neoplasm of colon 984551894 Z12.11 last C scope 03/11/21 , good for 5 years Active or passive immunization 243045453 Z23 decline flu shothad her COVID shots Serum iarida min B12 borderline low 369372624 R79.89 Lateral ep icondylitis of left humerus 6739840150 21131 M77.12 [id number] Marcie Raines MD [facility], [facility] [address] [place] [address] 03/23/2022 09:28:10 03/23/2022 10:18:41 Mixed hyperlipidemia 417176977 E78.2 last LDL 03/06/21 Serum iraida min B12 borderline low 543200190 R79.89 recheck Tobacco de pendence, continuous 908533145 F17.290 education last PFT 03/03/21 Asthma 702089511 J45.90 9 stable , last PFT 03/03/21 Body mass index 30+ - obesity 348040470 Z68.35 education diet and exercise Long-term drug therapy 181804879 Z79.899 metformin Screening mammography 24 650065 Z12.31 per pt had mammogram @ [facility] 02/01/22 Screening for malignant neoplasm of cervix 912960290 Z12.4 per pt had PAP 2018 Screening for malignant neoplasm of colon 348365226 Z12.11 last C scope 03/11/21 , good for 5 years Active or passive immunization 214942749 Z23 decline flu shothad her COVID shots Screening procedure 2012 5006 Z13.9 per [t had optometry 01/2022 Type 2 rakesh betes mellitus without complication 681888926 E11.9 per pt had optometry eval Dr Lane 01/2022last A1c 09/04/21las t CASSI 03/06/21no t take meds Normal grief reaction 27 5149472 F43.20 per pt had 3 relative last weekoff 03/24/22 through 03/28/22 Tattoo of skin 819379119 1 02 L81.8 Hep c Abx -ve 03/09/19 [id number] Marcie Raines MD [facility], [facility] [address] [place] [address] 06/23/2022 09:26:26 06/23/2022 10:18:34 Type 2 diabetes mellitus without complication 861812100 E11.9 per pt had optometry eval Dr Lane 01/2022last A1c 09/04/21las t CASSI 03/06/21no t take meds Tobacco de pendence, continuous 209657709 F17.290 education last PFT 03/23/22 Mixed hyperlipidemia 267 624334 E78.2 last LDL 12/25/21 Serum iraida min B12 borderline low 326695294 R79.89 recheck Long-term drug therapy 523616269 Z79.899 metformin Gastroesop hageal reflux disease without esophagitis 648702715 K21.9 stable Chronic constipation 236 967684 K59.09 GI started linzess 290 Body mass index 30+ - obesity 111307131 Z68.35 education diet and exercise Asthma 809385259 J45.90 9 stable , last PFT 05/12/22 Screening mammography 24 317246 Z12.31 per pt had mammogram @ [facility] 02/01/22 Screening for malignant neoplasm of cervix 902510546 Z12.4 per pt had PAP 2018 Screening for malignant neoplasm of colon 638748917 Z12.11 last C scope 03/11/21 , good for 5 years Active or passive immunization 759152167 Z23 decline flu shothad her COVID shots [id number] Marcie Raines MD [facility] [address] [place] [address] 09/22/2022 09:41:57 09/22/2022 10:47:47 Adult health examination 443069688 Z00.01 Mixed hyperlipidemia 267 824385 E78.2 last LDL 09/10/22 Type 2 rakesh betes mellitus without complication 466615950 E11.9 per pt had optometry eval Dr Lane 01/2022last A1c 09/10/22las t CASSI 09/10/22 Tobacco de pendence, continuous 697256250 F17.290 education last PFT 03/23/22 Tattoo of skin 285477747 1 02 L81.8 Hep c Abx -ve 03/09/19 Uterine leiomyoma 139619 05 D25.9 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 Symptomati c sinus bradycardia 633014733 R00.1 cardiology workup is -ve Low back pain 172695513 M54.50 off work 3 days Long-term drug therapy 908996273 Z79.899 metformin Gastroesop hageal reflux disease without esophagitis 952571996 K21.9 stable Family his tory of coronary arteriosclerosis 169716986 Z82.49 mother @30last EKG 09/02/21 Chronic constipation 236 929517 K59.09 better Body mass index 30+ - obesity 306790927 Z68.35 education down 17 LBs on diet and exercise Asthma 506855442 J45.90 9 stable , last PFT 05/12/22 Acquired b ilateral pes planus 0178870775 2768556 M21.41 arch support 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 993230169 T78.02XA education Serum iraida min B12 below reference range 136028622 R79.89 last level 09/10/22 Screening mammography 24 734247 Z12.31 per pt had mammogram @ [facility] 02/01/22 Screening for malignant neoplasm of cervix 381260487 Z12.4 per pt had PAP 2017 Screening for malignant neoplasm of colon 531398653 Z12.11 last C scope 03/11/21 , good for 5 years Active or passive immunization 190526653 Z23 decline flu shothad her COVID shots [id number] Marcie Raines MD [facility] [address] [place] [address] 12/23/2022 10:49:54 12/23/2022 12:01:28 Type 2 diabetes mellitus without complication 331301191 E11.9 per pt had optometry eval Dr Lane 01/2022last A1c 09/10/22las t CASSI 09/10/22 Tobacco de pendence, continuous 080898952 F17.290 education last PFT 03/23/22 Mixed hyperlipidemia 267 722376 E78.2 last LDL 09/10/22 @ goal off meds Long-term drug therapy 924532188 Z79.899 metformin Gastroesop hageal reflux disease without esophagitis 772498125 K21.9 stable Asthma 233300746 J45.90 9 stable , last PFT 05/12/22 Body mass index 25-29 - overweight 803741060 Z68.29 education down 7 LBs on diet and exercise Screening mammography 24 006838 Z12.31 per pt had mammogram @ [facility] 02/01/22 Screening for malignant neoplasm of cervix 286096006 Z12.4 per pt had PAP 11/2022 Screening for malignant neoplasm of colon 029681242 Z12.11 last C scope 03/11/21 , good for 5 years Active or passive immunization 457895204 Z23 decline flu shothad her COVID shots [id number] Marcie Raines MD [facility], [facility] [address] [place] [address] 03/09/2023 10:28:55 03/09/2023 11:51:29 Asthma 289210575 J45.909 stable , last PFT 05/12/22 Mixed hyperlipidemia 267 129238 E78.2 last LDL 09/10/22 @ goal off meds Serum iraida min B12 below reference range 924563945 R79.89 last level 09/10/22 Tattoo of skin 671353754 1 02 L81.8 Hep c Abx -ve 03/09/19 Tobacco de pendence, continuous 433042659 F17.290 education last PFT 03/23/22 Type 2 rakesh betes mellitus without complication 958521845 E11.9 per pt had optometry eval Dr Lane 01/2022last A1c 09/10/22las t CASSI 09/10/22 Body mass index 25-29 - overweight 810157758 Z68.29 education down 7 LBs on diet and exercise Screening mammography 24 330654 Z12.31 per pt had mammogram @ [facility] 02/01/22 Screening for malignant neoplasm of cervix 297544545 Z12.4 per pt had PAP 11/2022 Screening for malignant neoplasm of colon 608781009 Z12.11 last C scope 03/11/21 , good for 5 years Active or passive immunization 799646126 Z23 decline flu shothad her COVID shots Pain of ri ght knee region 4164448814 69066 M25.561 [id number] Marcie Raines MD [facility], [facility] [address] [place] [address] 06/13/2023 10:27:18 06/13/2023 11:05:15 Asthma 505545155 J45.909 stable , last PFT 05/12/22 Long-term drug therapy 192290140 Z79.899 metformin Mixed hyperlipidemia 267 116777 E78.2 last LDL 06/10/23 @ goal off meds Tobacco de pendence, continuous 377507268 F17.290 education last PFT 03/23/22 Type 2 rakesh betes mellitus without complication 561697684 E11.9 per pt had optometry eval Dr Lane 01/2022last A1c 06/10/23las t CASSI 09/10/22 Serum iraida min B12 below reference range 904761353 R79.89 last level 06/10/23 Screening mammography 24 013986 Z12.31 per pt had mammogram @ [facility] 03/09/23 Screening for malignant neoplasm of cervix 061161806 Z12.4 per pt had PAP 11/2022 Screening for malignant neoplasm of colon 594387507 Z12.11 last C scope 03/11/21 , good for 5 years Active or passive immunization 880195189 Z23 decline flu shothad her COVID shots [id number] Marcie Raines MD [facility], [facility] [address] [place] [address] 09/12/2023 09:41:12 09/12/2023 10:33:10 Asthma 377071496 J45.909 stable , last PFT 05/12/22 Body mass index 25-29 - overweight 313464711 Z68.29 education down 9 LBs on diet and exercise Chronic constipation 236 905373 K59.09 better Gastroesop hageal reflux disease without esophagitis 192621577 K21.9 stable Mixed hyperlipidemia 267 675044 E78.2 last LDL 06/10/23 @ goal off meds Serum iraida min B12 below reference range 387323888 R79.89 last level 06/10/23 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 857315866 T78.02XA education Tobacco de pendence, continuous 969900521 F17.290 education last PFT 05/2023 Screening mammography 24 303338 Z12.31 per pt had mammogram @ [facility] 03/09/23 Screening for malignant neoplasm of cervix 397942383 Z12.4 per pt had PAP 11/2022 Screening for malignant neoplasm of colon 544307903 Z12.11 last C scope 03/11/21 , good for 5 years Active or passive immunization 022275006 Z23 decline flu shothad her COVID shots Type 2 rakesh betes mellitus without complication 369731173 E11.9 Dx per pt historyper pt had optometry eval Dr Lane 01/2022last A1c 06/10/23las t CASSI 09/10/22 [id number] Marcie Raines MD [facility], [facility] [address] [place] [address] 03/04/2024 10:25:48 03/04/2024 11:52:31 Adult health examination 783407905 Z00.01 Asthma 002973095 J45.90 9 stable , last PFT 06/13/23 Body mass index 25-29 - overweight 149803739 Z68.29 education on diet and exercise Acquired b ilateral pes planus 3869585028 8574069 M21.41 arch support 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 [id number] T78.02XA education Chronic constipation 236 324463 K59.09 better Family his tory of coronary arteriosclerosis 782785928 Z82.49 mother @30last EKG 09/02/21 Gastroesop hageal reflux disease without esophagitis 579692332 K21.9 stable Long-term drug therapy 900830635 Z79.899 metformin Mixed hyperlipidemia 267 020919 E78.2 last LDL 06/10/23 @ goal off meds Serum iraida min B12 below reference range 618889598 R79.89 last level 06/10/23 Symptomati c sinus bradycardia 258078719 R00.1 cardiology workup is -ve Low back pain 513515486 M54.50 stable Tattoo of skin 372883764 1 02 L81.8 Hep c Abx -ve 03/09/19 Tobacco de pendence, continuous 599844430 F17.290 education last PFT 05/2023 Type 2 rakesh betes mellitus without complication 799803455 E11.9 Dx per pt historyper pt had optometry eval Dr Lane 01/2022last A1c 06/10/23las t CASSI 09/10/22 Uterine leiomyoma 705128 05 D25.9 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 Screening mammography 346889 Z12.31 per pt had mammogram @ [facility] 03/09/23 Screening for malignant neoplasm of cervix 916919452 Z12.4 per pt had PAP 11/2022 Screening for malignant neoplasm of colon 830954596 Z12.11 last C scope 03/11/21 , good for 5 years Active or passive immunization 723507735 Z23 decline flu shothad her COVID shots [id number] Marcie Raines MD [facility], [facility] [address] [place] [address] 05/16/2024 14:45:52 05/16/2024 15:42:40 Atypical chest pain 221900467 R07.89 Tobacco de pendence, continuous 234595033 F17.290 education last PFT 05/2023 Asthma 672677111 J45.90 9 stable , last PFT 06/13/23 Health Concerns Section Related Observation LastModified by Organization Detai ls LastModified Time None Recorded Concern Status LastModified by Organization Details LastModified Time None Recorded Advance Directives Directive None Recorded Payers Insurance Date Sequence Insurance Name Policy Number Policy Riojas Covered Member ID Riojas Member ID Guarantor Name 06/10/2024 1 *SELF PAY* Al elviaofelia UgaldeClint 05/16/[address] [facility] [id number] Sona Jaramillo [id number] Kevyn Ugaldenell 06/17/2024 1 [employer] [id number] [facility] [id number] [place] Jaramillo 05/29/2019 1 [facility] [id number] [facility] U[facility] [id number] Kevyn Ugaldenell 05/16/2024 1 [facility] [id number] Kevyn Jaramillo [id number] Kevyn Jaramillo Notes Date Note Type Note Provider Name and Address Organization Details Recorded Time 03/09/2023 text/html Hypertension F/UReported by PatientHPIFor medications, patient reportstaking medications as directedandno side effects from medication. For lifestyle, patient reportsregular exercise,limiting/avoi ding salt, andcompliant with low salt diet. For associated symptoms, patient reportsno dizziness,no lightheadedness,no chest pain,no shortness of breath,no palpitations,no edema,no calf pain with exertion, andno headache. Marcie Raines MD [address], [place], [address], [facility] 03/09/2023 11:46:22 06/13/2023 text/html Hypertension F/UReported by PatientHPIFor medications, patient reportstaking medications as directedandno side effects from medication. For lifestyle, patient reportsregular exercise,limiting/avoi ding salt, andcompliant with low salt diet. For associated symptoms, patient reportsno dizziness,no lightheadedness,no chest pain,no shortness of breath,no palpitations,no edema,no calf pain with exertion, andno headache. Marcie Raines MD [address] [facility] [address], [place], [address], [facility] 06/13/2023 10:58:53 09/12/2023 text/html Hypertension F/UReported by PatientHPIFor medications, patient reportstaking medications as directedandno side effects from medication. For lifestyle, patient reportsregular exercise,limiting/avoi ding salt, andcompliant with low salt diet. For associated symptoms, patient reportsno dizziness,no lightheadedness,no chest pain,no shortness of breath,no palpitations,no edema,no calf pain with exertion, andno headache. Marcie Raines MD [address] [facility] [address], [place], [address], [facility] 09/12/2023 10:26:50 03/04/2024 text/html Medicare Annual Wellness VisitReported by PatientSocial/Behavior al HistoryFor diet and nutrition, patient reportshealthy diet. For fracture risk, patient reportsno history of fractures,no recent explained fracture,no sudden unexplained fractures, andno previous musculoskeletal injuries. For physical activity, patient reportsexercises on a regular basis (walking),recent increase in physical activity,good physical condition, anddiscussed exercise habits.Mental Status:For depression risk, patient reportsnever feels sad, empty, or tearful,no loss of interest in activities,no significant changes in weight,no sleep disturbances or insomnia,no agitation,no loss of energy,no feelings of worthlessness or guilt,no thoughts of suicide,no history of depression, andno history of mood disorders. For orientation, patient reportsno disorientation to time,no disorientation to date, andno disorientation to place. For concentration and memory, patient reportsno decreased concentrating ability,no memory lapses or loss, anddoes not forget words. For speech/motor difficulties, patient reportsno speech difficulties,no difficulty expressing formulated concepts,no difficulty with fine manipulative tasks,no difficulty writing/copying,no slowed reaction time, anddoes not knock things over when trying to pick them up.Functional AbilityFor hearing, patient reportsno loss of hearing. For vision, patient reportsno vision problems. For falls risk assessment, patient reportsno frequent falls while walking,no fall in the past year,no fall since last visit, andno dizziness/vertigo. For home safety, patient reportsuse of seatbeltsandno vision or hearing loss while driving. Hypertension F/UReported by PatientHPIFor medications, patient reportstaking medications as directedandno side effects from medication. For lifestyle, patient reportsregular exercise,limiting/avoi ding salt, andcompliant with low salt diet. For associated symptoms, patient reportsno dizziness,no lightheadedness,no chest pain,no shortness of breath,no palpitations,no edema,no calf pain with exertion, andno headache. Marcie Raines MD [address] [facility] [address], [place], [address], [facility] 03/04/2024 11:30:14 05/16/2024 text/html Hypertension F/UReported by PatientHPIFor medications, patient reportstaking medications as directedandno side effects from medication. For lifestyle, patient reportsregular exercise,limiting/avoi ding salt, andcompliant with low salt diet. For associated symptoms, patient reportsno dizziness,no lightheadedness,no chest pain,no shortness of breath,no palpitations,no edema,no calf pain with exertion, andno headache. went to ER 04/21/24 for CP , workup is -ve Marcie Raines MD [address], [place], [address], [facility] 05/16/2024 15:41:05 OBGyn Episode No OBEpisode recorded.
--- OUTSIDE RECORDS SUMMARY | 2024-12-06 22:09 | XMS_ITS | Data Portability ---
Author Organization [facility] [place] Address [address] [place] [address] [place] [address] Care Team Providers Care Examination Grader Name Role Phone STIVEN RAINES Primary Care Provider Assessment Encounter Date Assessment Date Assessment LastModified by Organization Details LastModified Time 11/24/2022 11/24/2022 Annual gynecological exam performed. Patient will come back in a year unless there are new symptoms. [email or web address] Not available 11/24/2022 16:11:54 Plan of Treatment Reminders Order Date Submit Date Provider Last Modified By Organization Details Last Modified Time Details Appointments None recorded . Lab hbcab (hepatit is B core Ab) igm, serum 2022 023 [facility], [address], [place], [address], 3 16:29:21 HBsAg (hepatit is B surface Ag), serum 2022 023 [facility], [address], [place], [address], 3 16:29:21 hepatiti s C virus Ab, serum 2022 023 [facility], [address], [place], [address], 3 16:29:21 unlisted lab 2022 023 [facility], [address], [place], [address], 3 16:45:54 RPR (rapid plasma reagin), serum 2022 023 [facility], [address], [address], [place], [address], 3 16:29:21 17-hydro xyproges terone, QN, serum 2022 023 [facility], [address], [address], [place], [address], 3 16:29:19 dhea-sul fate, serum 2022 023 [facility], [address], [address], [place], [address], 3 16:29:20 estradio l, serum 2022 023 [facility], [address], [address], [place], [address], 3 16:29:20 FSH (follicl e-stimul ating hormone) , serum 2022 023 [facility], [address], [address], [place], [address], 3 16:29:20 HbA1c (hemoglo bin A1c), blood 2022 023 [facility], [address], [address], [place], [address], 3 16:29:20 lh (luteini zing hormone) , serum 2022 023 [facility], [address], [address], [place], [address], 3 16:29:20 progeste micha, serum 2022 023 [facility], [address], [address], [place], [address], 3 16:29:20 prolacti n, serum 2022 023 [facility], [address], [address], [place], [address], 3 16:29:20 shbg (sex hormone- binding globulin ), serum 2022 023 [facility], [address], [address], [place], [address], 3 16:29:21 TSH, serum or plasma 2022 023 [facility], [address], [address], [place], [address], 3 16:29:21 testoste micha free/otf tosteron e total, ratio, serum 2022 023 [facility], [address], [address], [place], [address], 3 16:29:21 Referral None recorded . Procedures None recorded . Surgeries None recorded . Imaging US, pelvis, complete 2022 023 [email or web address] Not available 4 15:55:06 MAMMO, diagnost ic, digital, bilatera l - left breast lump at 3 oclock 2022 023 [email or web address] Not available 4 15:55:06 US, breast, unilater al 2022 023 [email or web address] Not available 4 15:55:06 Medication Orders None recorded . Patient TargetsNo targets recorded. Patient InstructionsNo instructions recorded. Reason for Referral None Reported. Results Created Date Observation Date Name Description Value Unit Range Abnormal Flag Note LastModifiedBy Organization Detail LastModifiedTime 11/25/19 23 11/24/2022 TRICH OMONA S VAGIN NO (RRNA ) trichomonas vaginalis ribosomal RNA (rrna) Negati ve negati ve Not Available [facility] (Lab) [address], [place], [address], 11/28/2022 10:16:30 Result Notes None recorded. Procedures Surgical History Date Name Laterality Status Provider Name and Address Organization Details Recorded Time Date of Last Pap Smear completed [facility] 11/24/2022 16:16:42 Tubal Ligation completed [facility] 11/24/2022 16:18:52 Imaging Results None recorded. Procedure Notes None recorded. Medical Equipment None Reported. Allergies Allergen ID Allergen Name Allergen Category Reaction Reaction Severity Criticality Documentation Date Start Date Code Code System Note Provider Name and Address Organization Details Recorded Time 00679 shellfish derived food,medi cation Not available Not available Not available 11/24/2022 61467 UNK Ashli beth [facility] 3 16:12:33 Medications Not known to be on any medication Vitals Date Recorded Body height Body mass index (BMI) Body weight Systolic And Diastolic Provider Name and Address Organization Details Last Updated DateTime 11/24/2022 172.72 cm 29.2 kg/m2 89082.74 g 113/72 mm[Hg] [facility] Tonny [facility] 11/24/2022 16:12:30 Social History Question Answer Notes LastModified by Organizat ion Details LastModified Time Tobacco Smoking Status Current Every Day Smoker Ashli Lancaster [facility] 11/24/2022 16:18:34 Are You Blind Or Do You Have Difficulty Seeing? No Information not available 11/24/2022 Are You Deaf Or Do You Have Serious Difficulty Hearing? No Information not available 11/24/2022 Do You Have Difficulty Walking Or Climbing Stairs? No Information not available 11/24/2022 Sex: Unknown Functional Status Question Answer Note LastModified by Organizat ion Details LastModified Time What is your level of alcohol consumption? Occasional Information not available 11/24/2022 Are you able to walk? YESWOREST Information not available 11/24/2022 Are you able to care for yourself independently? Yes Information not available 11/24/2022 Do you have difficulty dressing, bathing, grooming, or toileting? No Information not available 11/24/2022 Mental Status None recorded. Family History Relationship Description Onset Age of this Age Resolved Age Notes LastModified by Organization Details LastModified Time Mother Heart disease [email or web address] Not available 11/12 16:12:37 Medical History Condition Response Other N Blood Transfusion N Dermatologic Disorders N Gestational Diabetes N Anxiety Disorder N Autoimmune disease N Arthritis N Polyps N Infertility N Acid Reflux (GERD) N Cancer N Varicosities N Stroke N Neurologic/Epilepsy N Fibromyalgia N Headaches N Kidney Disease N Heart Problems N Kidney or Bladder Problems N Eating Disorder N Art (IVF or FET) N Hepatitis/Liver Disease N No Past Medical History N Urinary Tract Infection N Asthma N Trauma/Violence N Thrombophilias N Allergies (Food, seasonal, environmental ) N Breast Cancer N Drug/Latex Allergies/Reactions N Lung Disease N Defects or Inherited Disease N Breast Problem N Hematologic disorders N Anesthesia Complications N History of STI N Deep Vein Thrombosis N Polycystic ovary syndrome N History of abnormal pap N Endometriosis N High Cholesterol N Thyroid Problems N GI Problems N Anemia N Psychiatric Illness N Ovarian Cancer N Diabetes N Pulmonary (TB, Asthma) N Eczema N Abuse/Domestic Violence N Depression/ depression N Heart Disease N Pre-Eclampsia N Hypertension N Osteoporosis N Gynecological History Statement/Question Response Flow Moderate Date of LMP 09/22/2022 N HPV Vaccine N Duration of Flow (days) 3 Current Control Method Tubal Ligat ion Age at First Child 21 Frequency of Cycle (Q days) 60 Sexually Active? Y Menses Monthly N Age of first menstrual cycle 15 Date of Last Pap Smear 05/15/2018 Sexual Problems? Yes LMP Approximate N Obstetrics History GPAL:G 2 P 0 0 0 2 Type Value Living 2 Total 2 Past Encounters Encounter ID Performer Location Encounter Start Date Encounter Closed Date Diagnosis/Indication Diagnosis SNOMED-CT Code Diagnosis ICD10 Code Diagnosis Note [id number] LESLYE Bauer [place] [address] [address] 11/24/2022 15:25:00 11/24/2022 17:01:18 Mass of left breast 7530443747 3428528 N63.20 imaging ordered Dyspareunia 51239403 N94 .10 pelvic u/s ordered Irregular periods 027388 07 N92.6 labs ordered Perimenopausal state 112 4762039 54493 Z78.0 reviewed the perimenopa use transition will check labs Gynecologi c examination 22060295 Z01.419 Suggested Calcium with Vitamin D 1200-1500m g daily. Patient advised to get an annual flu shot in the fall and she could obtain at [facility] or [facility] take care clinic. Also to obtain TDap vaccinatio n if you have not had one in the last 10 years. Recommend yearly mammograms . Encouraged monthly self breast exams. Encourage safe sexual practices, to use condoms and limit partners if not already in a monogamous relationsh ip. Engage in daily exercise of low impact aerobic exercise 45-60 minutes 4-5 times weekly. Avoid tobacco and illicit drugs as well as using moderation with alcohol intake less than 1-2 8 oz beverages daily. This lifestyle behavior pattern will lead to less health conditions and longer life span. If BMI greater than 25 weight watchers or dietary consult advised. All questions have been answered. Patient appears to understand informatio n, but if you have any questions please call or respond to this email. WWEBC - BTLno hx of abnormal papslast pap 2019 - normalpap updatedSTI testing added to papblood STI testing orderedUTD with PCP Venereal d isease screening 822254712 Z11.3 Sexually t ransmitted infectious disease 6402987 A64 Health Concerns Section Related Observation LastModified by Organization Detai ls LastModified Time None Recorded Concern Status LastModified by Organization Details LastModified Time None Recorded Advance Directives Directive None Recorded Payers Insurance Date Sequence Insurance Name Policy Number Policy Riojas Covered Member ID Riojas Member ID Guarantor Name 11/24/2022 1 [facility] [id number] Sona Jaramillo [id number] Clint Bagley Notes Date Note Type Note Provider Name and Address Organization Details Recorded Time 3 text/html Annual GYNReported by PatientGenitourinary symptomsFor menstrual cycle, patient reportsirregular cycle intervals(periods every 2-3 months for the past 3-4 years). For urinary symptoms, patient reportsno hematuriaandno incontinence. For vulva, patient reportsno genital lesion. For vagina, patient reportsnormal vaginal discharge.Breast symptomsFor breast, patient reportsno breast pain,no breast lump, andno nipple discharge.ContraceptionFo r current contraception, patient reportstubal ligation.Endocrine symptomsFor sexual complaints, patient reportspain during intercoursebut reportsno sexual complaintsandnormal libido. For menopausal symptoms, patient reportsno menopausal symptomsandnormal vaginal lubrication.Psychological symptomsFor psychological symptoms, patient reportsno depression,no anxiety, andno pmdd.Preventative measuresFor preventive measures, patient reportsencourage self breast examination,encourage regular exercise,encourage no tobacco use, andencourage regular mammograms starting age 40. LESLYE Bauer [address], [place], [address], [facility] 11/24/2022 17:00:38 OBGyn Episode Ob Episode Information Episode Created Date Number of Fetuses Patient Bloodtype Patient rh Status Prepregnancy Weight lbs Domestic Partner Domestic Partner Phone Father Name Floor Cleaner Status 11/25/19 23 1 CLOSED Fetus Data First Name Last Name Admitted to NICU Weight (g) Sex Living Outcome Pediatric Complications Fetus ID Race Codes Race Delivery Type 3401.94 M Full Term [id number] Vaginal Delivery Luis Calculation Initial Luis Date Initial Exam Date Initial Exam Provider Initial Ultrasound Date Last Menstrual Period Date Ultra Sound Weeks Gestation 0 Eighteen To Twenty Week Luis Update Ultra Sound Date Fundal Height At Umbil Quickening Date Ultra Sound Latest Weeks Gestation Final Luis Confirmed By Final Luis Confirmed Date Final Luis Date Ultra Sound Latest Days Gestation 0 0 Menstrual History Last Menstrual Date Menses Monthly On Bcp Conception Prior Menses Frequency Hcg Plus Date Menarche Onset Age Delivery Information Delivery Date Delivery Type Labor Anesthesia Weeks Gestation Incision Type Labor Labor Length Hrs Delivered By Post Complications Tubal Sterilization Discharge Date Comments 7 40 Discharge Information Feeding Method Contraceptive Method Maternal HG B and HCT Levels Ob Episode Information Episode Created Date Number of Fetuses Patient Bloodtype Patient rh Status Prepregnancy Weight lbs Domestic Partner Domestic Partner Phone Father Name Floor Cleaner Status 11/25/19 23 1 CLOSED Fetus Data First Name Last Name Admitted to NICU Weight (g) Sex Living Outcome Pediatric Complications Fetus ID Race Codes Race Delivery Type 3628.73 6 F Full Term Vaginal Delivery Luis Calculation Initial Luis Date Initial Exam Date Initial Exam Provider Initial Ultrasound Date Last Menstrual Period Date Ultra Sound Weeks Gestation 0 Eighteen To Twenty Week Luis Update Ultra Sound Date Fundal Height At Umbil Quickening Date Ultra Sound Latest Weeks Gestation Final Luis Confirmed By Final Luis Confirmed Date Final Luis Date Ultra Sound Latest Days Gestation 0 0 Menstrual History Last Menstrual Date Menses Monthly On Bcp Conception Prior Menses Frequency Hcg Plus Date Menarche Onset Age Delivery Information Delivery Date Delivery Type Labor Anesthesia Weeks Gestation Incision Type Labor Labor Length Hrs Delivered By Post Complications Tubal Sterilization Discharge Date Comments 6 40 Discharge Information Feeding Method Contraceptive Method Maternal HG B and HCT Levels
--- OUTSIDE RECORDS SUMMARY | 2024-12-06 22:09 | XMS_ITS | Patient Health Record ---
Author Organization [facility] Submittable Address [address] [facility] [address] [place] [address] Care Team Providers Care Utility Sales And Service Manager Name Role Phone Ann-Marie Jenny Unavailable [phone] Reason For Referral No Information Plan Of Treatment No Information Insurance Providers Payer Name Payer Address Payer Phone Subscriber Number Group Number Insured Name Patient Relationship to Insured Coverage Start Date Coverage End Date [facility] [address] [place] [phone] [id number] BIMAL CHA Spouse - patient is the spouse of the insured
--- OUTSIDE RECORDS SUMMARY | 2024-12-06 22:10 | XMS_ITS | Clinical Summary ---
Author Organization [facility] Address [address] [place] [id number] Care Team Providers Care Shipping And Receiving Material Handler Name Role Phone Marcie Villalta MD Primary Care Provider +1- [phone] Allergies Active Allergy Reactions Criticality Noted Date Comments Shellfish Containing Products Anaphylaxis,Hives,Itching, Palpitations,Rash,Shortnes s of breath,Swelling High 02/20/2020 Shrimp Hives Medium 05/17/2024 Medications EPINEPHrine 0.3 mg/0.3 mL auto-injection syringe INJECT 1 PEN IN THE MUSCLE ONE TIME DIRECTED 1 Active cyanocobalamin (Vitamin B-12) 2,500 mcg tablet, sublingual Vitamin B-12 2,500 mcg sublingual tablet Active Ozempic 0.25 mg or 0.5 mg (2 mg/3 mL) pen injector injection 3 Active Exelderm 1 % external solution Exelderm 1 % topical solution Active minoxidiL (LONITEN) 2.5 mg tabletIndicatio ns:hypertension Take 0.5 tablets (1.25 mg total) by mouth daily 15 tablet 3 3 Active Additional Information Patient not taking.Reported on 09/05/2024 difluprednate (DUREZOL) 0.05 % dropsIndication s:Uveitis Administer 1 drop into the right eye 2 (two) times a day 5 mL 1 4 Active albuterol HFA (PROVENTIL HFA,VENTOLIN HFA,PROAIR HFA) 90 mcg/actuation inhaler INHALE 2 PUFFS BY MOUTH EVERY 8 HOURS NEEDED 4 Active nicotine (NICODERM CQ) 7 mg Apply 1 patch every day by transdermal route for 7 days. 6 Active nicotine (NICODERM CQ) 21 mg Apply 1 patch every day by transdermal route for 14 days. 6 Active nicotine (NICODERM CQ) 14 mg Apply 1 patch every day by transdermal route for 14 days. 6 Active Active Problems Problem Noted Date Diagnosed Date Uveitis Assessment & Plan (04/04/2024 3:15 PM DAY CARE ATTENDANT): Has not been seen in clinic for over a year, recently had a flare-up of anterior uveitis, saw Dr. Pierson who asked that she use Durezol 4 times a day in the right eye. She states she is able to use it twice a day, and this has been helping. I have asked that she continue using the Durezol twice a day and return to see us in 3 or 4 weeks. I am hoping this will bring things under control. 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 Has not taken drops in over a year. No known etiology. Pt reports worsening lower back pain with time. Initial diagnosis was in 2019. All lab work for infectious or autoimmune etiology was negative at that time. Consider spondyloarthropathy given worsening lower back pain with flare of uveitis. No hx of injury. Start Durezol four time daily OD. (Worked better than pred in the past). Schedule for follow up evaluation with Dr. Lane in uveitis clinic within the month. Schedule consult with rheum given worsening lower back pain. Assessment & Plan (05/27/2021 3:38 PM DAY CARE ATTENDANT): She try generic Durezol, while this seemed to keep her inflammation in the eye under control she noticed that she had redness and irritation of her eyelids and because of this she was concerned about an allergic reaction and stopped using the medication. When she stopped using the generic Durezol the inflammation in her eye return she restarted the generic Durezol using it 3 to 4 times a day in both eyes and this seemed to bring her inflammation in her eyes under control however it made her skin more irritated. Will try to change back to name brand Durezol as she seemed to have good control when she was on this medication and did not have the side effects. Recommend name brand Durezol 4 times a day to both eyes, return in 2 weeks for pressure check, office visit in 4 weeks. Assessment & Plan (02/25/2021 3:41 PM CDT): The workup has been essentially negative. Recurrence of inflammation in 06/2020. Resolved with QID durezol and taper, now using drop q other day OU. Exam relatively stable, OS with possible very trace inflammation however patient asymptomatic. She would like to try durezol, one drop to both eyes every 2 days. Have previously discussed options of STK and PO steroids should her inflammation worsen and no longer able to be controlled with topical steroids. Assessment & Plan (12/24/2020 3:58 PM CDT): The workup has been essentially negative. Recurrence of inflammation in 06/2020. Resolved with QID durezol and taper, now using drop q other day OU. Exam now with only tr AV cell. Stable vision. Patient has history of recurrent flare when off Durezol completely. Will continue every other day dosing for now given stability and prior recurrence. We will re-evaluate roughly 2 months time, if everything remains stable will discontinue the drops. Have previously discussed options of STK and PO steroids should her inflammation worsen and no longer able to be controlled with topical steroids. Repeat exam in 2 months Assessment & Plan (11/05/2020 4:20 PM CDT): The workup has been essentially negative. Recurrence of inflammation in 06/2020. Increased Durezol to QID 1 month ago. But lost gtt last week. Vision stable. Exam today with resolved KP, quiet AC, improving ant vitreous cell. Stable vision. Patient has history of recurrent flare when off Durezol completely. Recommended that she restart the Durezol twice a day for 3 weeks and then cut down to once a day until I see her again in 6 weeks time. Discussed options of STK and PO steroids should her inflammation worsen and no longer able to be controlled with topical steroids. Repeat exam in 6-8 weeks. Assessment & Plan (10/01/2020 3:51 PM CDT): The workup has been essentially negative. Treponemal IgG/IgM nonreactive. Recurrence of inflammation in 06/2020, but patient has not been able to increase durezol to QID (using it ~Qdaily). Still with inflammation today, no posterior involvement. Difficulty with remembering during the day, she has tried setting timers on phone. Discussed with patient that we should increase the Durezol to QID and use it consistently. Offered STK or PO medications, however pt would like to try topical route again. She will use Durezol QID OU. IOP check in 2 weeks, OV/DFE in 4 weeks. Assessment & Plan (07/09/2020 4:27 PM DAY CARE ATTENDANT): The workup has been essentially negative, however we do not have complete syphilis testing yet. She will go to the lab and complete the testing. She has a recurrence of her inflammation now with KP on the endothelium. I have asked that she increase her Durezol to 4 times a day for a week then 3 times a day for a week then twice a day until I see her again in roughly 6 weeks time. Assessment & Plan (05/28/2020 3:31 PM DAY CARE ATTENDANT): Remains quiet, recommend trial of Durezol every other day to both eyes. Assessment & Plan (04/16/2020 4:02 PM DAY CARE ATTENDANT): Hx of bilateral uveitis. Has tattoos, no inflammation in skin per pt. Testing results so far: - JEREMY wnl - RPR wnl - CBC/CMP wnl - HLA-B27 negative - TSpot negative - RPR nonreactive - CXR unremarkable Previously inflamation on pred forte (PF), improved with Durezol. Ran out of Durezol from 03/23/20 to 04/08/20, then restarted at TID dosing. Patient had some minor light sensitivity when she was off drops, but symptoms resolved and inflammation quiet today. Durezol TID for another 1 week, then BID for 2 weeks, then once daily then recheck. Assessment & Plan (03/05/2020 4:16 PM CDT): Doing well, recommend decreasing Durezol to 3 times a day for 2 weeks then twice a day for 2 weeks then once a day until we see her again roughly 6 weeks time. Assessment & Plan (02/20/2020 4:03 PM CDT): Two year history of bilateral uveitis, last visit 4 weeks ago with granulomatous keratitic precepitates and mild cell in AC and AV despite daily prednisolone drop. Has tattoos, no inflammation in skin per pt. Increased prednisolone to four times daily in both eyes. Testing results so far: - JEREMY wnl - RPR wnl - CBC/CMP wnl - HLA-B27 negative - TB serology - says needs to be collected - FTA-Abs - says needs to be collected Today with persistent AC cell, granulomatous KPs OU in Arlt's triangle, ant vit cell. Posterior pole remains uninvolved on exam. Recommend completing TB and syphilis workup, adding CXR, changing PF to Durezol QID, and RTC 2 weeks to assess AC, review labs, and formulate treatment plan. Assessment & Plan (01/23/2020 4:32 PM CDT): Two year history of bilateral uveitis, today with granulomatous keratitic precepitates and mild cell in AC and AV despite daily prednisolone drop. Recommend increasing prednisolone to four times daily in both eyes. Per patient, no history of IOP response to prednisolone. Consider initial uveitis workup - sarcoid, syphilis, TB, CBC/CMP. Has tattoos, no inflammation in skin per pt. Age-related nuclear cataract of both eyes Assessment & Plan (03/04/2024 4:04 PM CDT): Mild. Observe. Assessment & Plan (11/05/2020 3:59 PM CDT): Mild, NVS Observe Assessment & Plan (10/01/2020 3:52 PM CDT): Mild, NVS Observe Assessment & Plan (01/23/2020 3:44 PM CDT): Mild, NVS Observe Surgical History Surgery Date Site/Laterality Comments TUBAL LIGATION 05/15/1996 - 05/14/1997 Medical History Medical History Date Comments Uveitis Hypertension Diabetes mellitus (HCC) Asymptomatic bradycardia Family History Medical History Relation Name Comments Cancer Maternal Grandfather Cancer Maternal Grandmother Cancer Mother Heart attack Mother Hypertension Mother Relation Name Status Comments Maternal Grandfather Maternal Grandmother Mother Social History Tobacco Use Types Packs/Day Years Used Date Smoking Tobacco: Every Day Cigarettes 0.2 1 Cigars Smokeless Tobacco: Never Tobacco Cessation:Ready to Q uit: Not Asked; Counseling Given: Not Answered Comments:4 cigars daily Alcohol Use Standard Drinks/Week [...] on file Legal Sex Female 6:52 AM DAY CARE ATTENDANT Gender Identity Not on file Sexual Orientation Not on file Obstetrics History Last Filed Vital Signs Vital Sign Reading Time Taken Comments Blood Pressure 118/66 09/05/2024 2:01 PM CDT Pulse 58 09/05/2024 2:01 PM CDT Temperature 36.7 C (98.1 F) 05/17/2024 8:02 AM DAY CARE ATTENDANT Respiratory Rate - - Oxygen Saturation 99% 09/05/2024 2:01 PM CDT Inhaled Oxygen Concentration - - Weight 85.3 kg (188 lb) 09/05/2024 2:01 PM CDT Height 172.7 cm (5' 8) 09/05/2024 2:01 PM CDT Body Mass Index 28.59 09/05/2024 2:01 PM CDT Plan of Treatment Health Maintenance Due Date Last Done Comments Cervical Cancer Screening 1975 Colon Cancer Screening-Colonoscopy 1975 Depression Screening 1975 DTaP/Tdap/Td Vaccine (1 - Tdap) 1986 Hepatitis B Screening 1993 Regular Well Visit/Exam 18-64 1993 Pneumococcal vaccine <65 (1 of 2 - PCV) 1994 Covid-19 Vaccine (2 - 2023-2 5 season) 2024 06/08/2021 Influenza Vaccine (#1) 2025 Breast Cancer Screening-Mammogram 05/25/2025 05/25/2024, 03/15/2023, 03/09/2023, Additional history exists Hepatitis C Screening Completed 05/17/2024 Procedures Procedure Name Priority Date/Time Associated Diagnosis Comments SCREENING MAMMOGRAM BILATERAL W ROBERT Schedule Routine, Read Routine (OP Routine) 05/25/2024 8:20 AM DAY CARE ATTENDANT Screening mammogram, encounter for HEPATITIS C ANTIBODY Routine 05/17/2024 9:15 AM DAY CARE ATTENDANT Chronic pain of both knees from Last 3 Months or Most Recently Relevant to Health Maintenance Results * Screening Mammogram Bilateral W Robert (05/25/2024 8:20 AM DAY CARE ATTENDANT) Anatomical Region Laterality Modality Breast Bilateral Mammography Narrative 05/27/2024 2:57 PM DAY CARE ATTENDANT Mammogram Technique: Bilateral Digital Breast Tomosynthesis, Bilateral C-view 2D Screening mammogram. Views obtained: bilateral craniocaudal and bilateral mediolateral oblique. Computer Aided Detection was performed. Mammogram Findings: The present examination has been compared to prior imaging studies performed at [facility] on 09/14/2017 and 10/31/2018, and at [facility] on 02/01/2022. There are scattered areas of fibroglandular density. There is no suspicious abnormality in either breast. Impression: There is no mammographic evidence of malignancy. Annual screening mammography is recommended. OVERALL FINAL ASSESSMENT: BI-RADS CATEGORY 1: Negative. Procedure Note Rosemary Austin MD - 05/27/2024 Mammogram Technique: Bilateral Digital Breast Tomosynthesis, Bilateral C-view 2D Screening mammogram. Views obtained: bilateral craniocaudal and bilateral mediolateral oblique. Computer Aided Detection was performed. Mammogram Findings: The present examination has been compared to prior imaging studies performed at [facility] on 09/14/2017 and 10/31/2018, and at [facility] on 02/01/2022. There are scattered areas of fibroglandular density. There is no suspicious abnormality in either breast. Impression: There is no mammographic evidence of malignancy. Annual screening mammography is recommended. OVERALL FINAL ASSESSMENT: BI-RADS CATEGORY 1: Negative. us Self Screening Mammogram IMG MAMMO PROCEDURES Fi nal Result * Hepatitis C antibody Blood (05/17/2024 9:15 AM DAY CARE ATTENDANT) Hep C Ab Nonreactive Nonreactive Comment:Antibodies to HCV no t detected. Does NOT exclude the possibility of recent exposure to HCV. Current interpretive data was last revised on 22 Blood 05/17/2024 9:15 AM DAY CARE ATTENDANT 05/17/2024 9:31 AM DAY CARE ATTENDANT Janna Rudd MD LAB MICROBIOLOGY - GENERA L ORDERABLES Final Result [facility] Department [place] [address] from Last 3 Months or Most Recently Relevant to [place] [address] [facility] CHOICE PLUS [facility] O [facility] O [facility] O Care Teams Shipping And Receiving Material Handler Relationship Specialty Start Date End Date Marcie Villalta MD [address] [facility] [address] [place] [address] PCP - General Internal Medicine 01/10/20
--- OUTSIDE RECORDS SUMMARY | 2024-12-06 22:10 | XMS_ITS | Referral Summary ---
Author Organization [facility] Address [address] [place] [phone] Care Team Providers Care Comic Artist Name Role Phone Marcie Villalta MD Primary Care Provider +1- [phone] Allergies Active Allergy Reactions Criticality Noted Date [...] Uveitis Assessment & Plan (04/04/2024 3:15 PM SEWER): Has not been seen in clinic for [...] pain. Assessment & Plan (05/27/2021 3:38 PM SEWER): She try generic Durezol, while this seemed [...] weeks. Assessment & Plan (07/09/2020 4:27 PM SEWER): The workup has been essentially negative, however [...] time. Assessment & Plan (05/28/2020 3:31 PM SEWER): Remains quiet, recommend trial of Durezol every other day to both eyes. Assessment & Plan (04/16/2020 4:02 PM SEWER): Hx of bilateral uveitis. Has tattoos, no [...] (01/23/2020 3:44 PM CDT): Mild, NVS Observe Social History Tobacco Use Types Packs/Day Years [...] on file Legal Sex Female 6:52 AM SEWER Gender Identity Not on file Sexual Orientation Not on file Last Filed Vital Signs Vital Sign Reading Time Taken Comments Blood Pressure 118/66 09/05/2024 2:01 PM CDT Pulse 58 09/05/2024 2:01 PM CDT Temperature 36.7 C (98.1 F) 05/17/2024 8:02 AM SEWER Respiratory Rate - - Oxygen Saturation 99% 09/05/2024 2:01 PM CDT Inhaled Oxygen Concentration - - Weight 85.3 kg (188 lb) 09/05/2024 2:01 PM CDT Height 172.7 cm (5' 8) 09/05/2024 2:01 PM CDT Body Mass Index 28.59 09/05/2024 2:01 PM CDT Plan of Treatment Not on file Procedures Procedure Name Priority Date/Time Associated Diagnosis Comments SCREENING MAMMOGRAM BILATERAL W ROBERT Schedule Routine, Read Routine (OP Routine) 05/25/2024 8:20 AM SEWER Screening mammogram, encounter for HEPATITIS C ANTIBODY Routine 05/17/2024 9:15 AM SEWER Chronic pain of both knees from Last 3 Months or Most Recently Relevant to Health Maintenance Results * Screening Mammogram Bilateral W Robert (05/25/2024 8:20 AM SEWER) Anatomical Region Laterality Modality Breast Bilateral Mammography Narrative 05/27/2024 2:57 PM SEWER Mammogram Technique: Bilateral Digital Breast Tomosynthesis, Bilateral C-view 2D Screening mammogram. Views obtained: bilateral craniocaudal and bilateral mediolateral oblique. Computer Aided Detection was performed. Mammogram Findings: The present examination has been compared to prior imaging studies performed at [facility] on 09/14/2017 and 10/31/2018, and at [facility] on 02/01/2022. There are scattered areas of [...] compared to prior imaging studies performed at [facility] on 09/14/2017 and 10/31/2018, and at [facility] on 02/01/2022. There are scattered areas of fibroglandular density. There is no suspicious abnormality in either breast. Impression: There is no mammographic evidence of malignancy. Annual screening mammography is recommended. OVERALL FINAL ASSESSMENT: BI-RADS CATEGORY 1: Negative. Self Screening Mammogram IMG MAMMO PROCEDURES Fi nal Result * Hepatitis C antibody Blood (05/17/2024 9:15 AM SEWER) Hep C Ab Nonreactive Nonreactive Comment:Antibodies to HCV no t detected. Does NOT exclude the possibility of recent exposure to HCV. Current interpretive data was last revised on 22 Blood 05/17/2024 9:15 AM SEWER 05/17/2024 9:31 AM SEWER Janna Rudd MD LAB MICROBIOLOGY - GENERA L ORDERABLES Final Result [facility] Department [place] [address] from Last 3 Months or Most Recently Relevant to Health Maintenance Insurance [facility] CHOICE PLUS [facility] HMO/PPO Address: [facility] [address] [place] [address] [facility] HMO [facility] H[facility]/PPO Address: [address] [place] [address] [facility] [place] [address] [facility] HMO Care Teams Comic Artist Relationship Specialty Start Date End Date Marcie Villalta MD [address] [facility] [address] [place], [place] [id number] PCP - General Internal Medicine 01/10/20
[2024-12-06 22:12] VITALS: BP 137/71; PULSE 55; RESP 20; TEMP 36.5; O2SAT 100
--- OUTSIDE RECORDS SUMMARY | 2024-12-06 23:54 | XMS_ITS | Clinical Summary ---
Author Organization [facility] Address [address] [place] [id number] Care Team Providers Care Center Administrator Name Role Phone Marcie Villalta MD Primary Care Provider +1- [phone] Allergies Active Allergy Reactions Criticality Noted Date [...] Uveitis Assessment & Plan (04/04/2024 3:15 PM CONE BAKER MACHINE): Has not been seen in clinic for [...] pain. Assessment & Plan (05/27/2021 3:38 PM CONE BAKER MACHINE): She try generic Durezol, while this seemed [...] weeks. Assessment & Plan (07/09/2020 4:27 PM CONE BAKER MACHINE): The workup has been essentially negative, however [...] time. Assessment & Plan (05/28/2020 3:31 PM CONE BAKER MACHINE): Remains quiet, recommend trial of Durezol every other day to both eyes. Assessment & Plan (04/16/2020 4:02 PM CONE BAKER MACHINE): Hx of bilateral uveitis. Has tattoos, no [...] on file Legal Sex Female 6:52 AM CONE BAKER MACHINE Gender Identity Not on file Sexual Orientation Not on file Obstetrics History Last Filed Vital Signs Vital Sign Reading Time Taken Comments Blood Pressure 118/66 09/05/2024 2:01 PM CDT Pulse 58 09/05/2024 2:01 PM CDT Temperature 36.7 C (98.1 F) 05/17/2024 8:02 AM CONE BAKER MACHINE Respiratory Rate - - Oxygen Saturation 99% [...] Read Routine (OP Routine) 05/25/2024 8:20 AM CONE BAKER MACHINE Screening mammogram, encounter for HEPATITIS C ANTIBODY Routine 05/17/2024 9:15 AM CONE BAKER MACHINE Chronic pain of both knees from Last 3 Months or Most Recently Relevant to Health Maintenance Results * Screening Mammogram Bilateral W Robert (05/25/2024 8:20 AM CONE BAKER MACHINE) Anatomical Region Laterality Modality Breast Bilateral Mammography Narrative 05/27/2024 2:57 PM CONE BAKER MACHINE Mammogram Technique: Bilateral Digital Breast Tomosynthesis, Bilateral C-view 2D Screening mammogram. Views obtained: bilateral craniocaudal and bilateral mediolateral oblique. Computer Aided Detection was performed. Mammogram Findings: The present examination has been compared to prior imaging studies performed at [facility] on 09/14/2017 and 10/31/2018, and at [facility] on 02/01/2022. There are scattered areas of [...] compared to prior imaging studies performed at [facility] on 09/14/2017 and 10/31/2018, and at [facility] on 02/01/2022. There are scattered areas of fibroglandular density. There is no suspicious abnormality in either breast. Impression: There is no mammographic evidence of malignancy. Annual screening mammography is recommended. OVERALL FINAL ASSESSMENT: BI-RADS CATEGORY 1: Negative. us Self Screening Mammogram IMG MAMMO PROCEDURES Fi nal Result * Hepatitis C antibody Blood (05/17/2024 9:15 AM CONE BAKER MACHINE) Hep C Ab Nonreactive Nonreactive Comment:Antibodies to HCV no t detected. Does NOT exclude the possibility of recent exposure to HCV. Current interpretive data was last revised on 22 Blood 05/17/2024 9:15 AM CONE BAKER MACHINE 05/17/2024 9:31 AM CONE BAKER MACHINE Janna Rudd MD LAB MICROBIOLOGY - GENERA L ORDERABLES Final Result [facility] Department [place] [address] from Last 3 Months or Most Recently Relevant to Health [place] [address] [facility] CHOICE PLUS [facility] O [facility] O [facility] O Care Teams Center Administrator Relationship Specialty Start Date End Date Marcie Villalta MD [address] [facility] [address] [place] [address] PCP - General Internal Medicine 01/10/20
--- OUTSIDE RECORDS SUMMARY | 2024-12-06 23:54 | XMS_ITS | Referral Summary ---
Author Organization [facility] Address [address] [place] [id number] Care Team Providers Care Plastic Production Machine Setter Name Role Phone Marcie Villalta MD Primary Care Provider [phone] Allergies Active Allergy Reactions Criticality Noted Date [...] Uveitis Assessment & Plan (04/04/2024 3:15 PM TRADEMARK AFFIXER): Has not been seen in clinic for [...] pain. Assessment & Plan (05/27/2021 3:38 PM TRADEMARK AFFIXER): She try generic Durezol, while this seemed [...] weeks. Assessment & Plan (07/09/2020 4:27 PM TRADEMARK AFFIXER): The workup has been essentially negative, however [...] time. Assessment & Plan (05/28/2020 3:31 PM TRADEMARK AFFIXER): Remains quiet, recommend trial of Durezol every other day to both eyes. Assessment & Plan (04/16/2020 4:02 PM TRADEMARK AFFIXER): Hx of bilateral uveitis. 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 AFFIXER Gender Identity Not on file Sexual Orientation Not on file Last Filed Vital Signs Vital Sign Reading Time Taken Comments Blood Pressure 118/66 09/05/2024 2:01 PM CDT Pulse 58 09/05/2024 2:01 PM CDT Temperature 36.7 C (98.1 F) 05/17/2024 8:02 AM TRADEMARK AFFIXER Respiratory Rate - - Oxygen Saturation 99% [...] Read Routine (OP Routine) 05/25/2024 8:20 AM TRADEMARK AFFIXER Screening mammogram, encounter for HEPATITIS C ANTIBODY Routine 05/17/2024 9:15 AM TRADEMARK AFFIXER Chronic pain of both knees from Last 3 Months or Most Recently Relevant to Health Maintenance Results * Screening Mammogram Bilateral W Robert (05/25/2024 8:20 AM TRADEMARK AFFIXER) Anatomical Region Laterality Modality Breast Bilateral Mammography Narrative 05/27/2024 2:57 PM TRADEMARK AFFIXER Mammogram Technique: Bilateral Digital Breast Tomosynthesis, Bilateral C-view 2D Screening mammogram. Views obtained: bilateral craniocaudal and bilateral mediolateral oblique. Computer Aided Detection was performed. Mammogram Findings: The present examination has been compared to prior imaging studies performed at [facility] on 09/14/2017 and 10/31/2018, and at [facility] on 02/01/2022. There are scattered areas [...] compared to prior imaging studies performed at [facility] on 09/14/2017 and 10/31/2018, and at [facility] on 02/01/2022. There are scattered areas of fibroglandular density. There is no suspicious abnormality in either breast. Impression: There is no mammographic evidence of malignancy. Annual screening mammography is recommended. OVERALL FINAL ASSESSMENT: BI-RADS CATEGORY 1: Negative. Self Screening Mammogram IMG MAMMO PROCEDURES Fi nal Result * Hepatitis C antibody Blood (05/17/2024 9:15 AM TRADEMARK AFFIXER) Hep C Ab Nonreactive Nonreactive Comment:Antibodies to HCV no t detected. Does NOT exclude the possibility of recent exposure to HCV. Current interpretive data was last revised on 22 Blood 05/17/2024 9:15 AM TRADEMARK AFFIXER 05/17/2024 9:31 AM TRADEMARK AFFIXER Janna Rudd MD LAB MICROBIOLOGY - GENERA L ORDERABLES Final Result [facility] [place] [address] from Last 3 Months or Most Recently Relevant to Health Maintenance Insurance [employer] [place] [address] [facility] [place] [address] [facility] Care Teams Plastic Production Machine Setter Relationship Specialty Start Date End Date Marcie Villalta MD [address] [facility] [address] [place], [place] [id number] PCP - General Internal Medicine 01/10/20
--- OUTSIDE RECORDS SUMMARY | 2024-12-06 23:54 | XMS_ITS | Encounter Summary ---
Author Organization [facility] Healthcare Address [address] [place] [address] Care Team Providers Care Vb Net Programmer Name Role Phone Unavailable Primary Care Provider Unavailabl e Reason for Visit * Diagnostic Imaging (Routine) - Closed Specialty Diagnoses / Procedures Referred By Contac t Referred To Contact Procedures Breast Imaging Screening Outside Reference Referral, Self Referral ID Status Reason Start Date Expiration Date Visits Re quested Visits Authorized [id number] Closed 02/02/2022 03/04/2023 1 1 Encounter Details Date Type Department Care Team (Late st Contact Info) Description 09/14/2017 Hospital Encounter [facility] [address] [place] [id number] Social History Tobacco Use Types Packs/Day Years [...] on file 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 There will be no report generated by a [facility] Radiologist. Narrative RAD_MAMMO_[facility] - 02/02/2022 3:38 PM CDT EXAMINATION: Images For Reference Purposes Only us Self Referral IMG MAMMO PROCEDURES Final Resul t [facility]MO[facility] documented in this encounter Visit Diagnoses Not on filedocumented in this encounter
--- OUTSIDE RECORDS SUMMARY | 2024-12-06 23:54 | XMS_ITS | Encounter Summary ---
Author Organization [facility] Healthcare Address [address] [place] [address] Care Team Providers Care Order Analyst Name Role Phone Unavailable Primary Care Provider Unavailabl e Reason for Visit * Diagnostic Imaging (Routine) - Closed Specialty Diagnoses / Procedures Referred By Contac t Referred To Contact Procedures Breast Imaging Screening Outside Reference Referral, Self Referral ID Status Reason Start Date Expiration Date Visits Re quested Visits Authorized [id number] Closed 02/02/2022 03/04/2023 1 1 Encounter Details Date Type Department Care Team (Late st Contact Info) Description 10/31/2018 Hospital Encounter [facility] [address] [place] [id number] Social History Tobacco Use Types Packs/Day Years [...] on file 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 There will be no report generated by a [facility] Radiologist. Narrative RAD_MAMMO_[facility] - 02/02/2022 3:38 PM CDT EXAMINATION: Images For Reference Purposes Only us Self Referral IMG MAMMO PROCEDURES Final Resul t [facility]MAMMO[facility] documented in this encounter Visit Diagnoses Not on filedocumented in this encounter
--- OUTSIDE RECORDS SUMMARY | 2024-12-06 23:54 | XMS_ITS | Clinical Summary ---
Author Organization [facility] Address [address] [place] [id number] Care Team Providers Care Blacksmith Hammer Operator Name Role Phone Stiven Villalta MD Primary Care Provider [phone] Jenny Kraft DO Unavailable [phone] Family History Medical History Relation Comments Breast [...] Most Recently Relevant to Health Maintenance Insurance [facility] Care Teams Blacksmith Hammer Operator Relationship Specialty Start Date End Date Stiven Villalta MD [address] [facility] [address] [place] [address] PCP - General INTERNAL MEDICINE 02/20/23 Jenny Kraft DO [address] [facility] [address] [place] [address] 02/20/23
== END 2024-12-06 23:44 | disposition left against medical advice (07) ==
LOC: ANHED 23:52
PROVIDERS: PCP Internal Medicine
DX: R20.0 Anesthesia of skin (principal)
CPT/HCPCS: 99199